=== PATIENT | female | born 1990 | race Caucasian/White ===

== ENCOUNTER → 2017-10-23 16:38 | Outpatient (CLI) | payer MEDICAID, SELFPAY ==
[2017-10-23 19:17] LABS: Chlamydia Trachomatis by PCR Negative (Negative); Neisserai gonorrhoeae by PCR Negative (Negative); Probe Check PASS; Sample Adequacy Control PASS; Specimen Processing Control PASS
== END ==
PROVIDERS: Visit Provider Obstetrics & Gynecology
DX: Z11.3 Encounter for screening for infections with a predominantly sexual mode of transmission (principal)
CPT/HCPCS: 87491; 87591

== ENCOUNTER 2018-05-02 21:11 | Emergency (ER) | payer MEDICAID, SELFPAY ==
[2018-05-02 21:12] VITALS: BP 123/68; PULSE 75; RESP 16; TEMP 37.1; O2SAT 98; BMI 28.3
[2018-05-02] MEDS: Naproxen 500 MG Tablet PO (21:38)
[2018-05-02] MEDS: Diphth,Pertuss(Acell),Tet Vac 0.5 ML Vial IM (21:40)
--- NOTE | 2018-05-02 21:40 | RAD_ITS ---
STUDY: X-RAY - LUMBAR SPINE REASON FOR EXAM: Female, 28 years old. Fall and pain TECHNIQUE: 3 view(s) of the lumbar spine were obtained. # of Images: 3 COMPARISON: None FINDINGS: Normal lumbar lordosis. There is no substantial scoliosis. There is a normal alignment of the vertebrae. Normal vertebral bodies and endplates. Normal disc space heights. An IUD is present. RAD/Lumbar Spine 2 or 3 Views IMPRESSION: Normal x-ray examination of the lumbar spine. Comment: If there is further clinical concern for a radiographically occult spinal fracture, consider CT correlation if possible. Electronically Signed: Byron Grewal MD at 22:15 EDT Tel , Service support ,
--- NOTE | 2018-05-02 22:19 | ED.DCSUM_ITS ---
- ER Visit Summary Date of Service: 05/02/18 Chief Complaint: Fall History of Present Illness: The patient is a 28 F with no primary care physician. She reports that approximately noon today she slipped on wet floor and fell about 15 with steps. States that initially she had lower back pain that was 8 out of 10 severity. Is now 3 out of 10 severity. States that she did not have any other pains initially. Now she has pain in her upper back, headache, and pain in her buttocks. She denies any loss of consciousness. She has not taken anything for pain. She is unsure when her last tetanus shot was. Physical Examination: Vitals: Stable. Afebrile. Neck: No vertebral tenderness. Full ROM without difficulty. Cleared by NEXUS criteria. Back: Mild diffuse tenderness palpation over the LS spine. General: A&O x 3. NAD. Cardiovascular exam: Regular rate and rhythm, no murmur, rub or gallop. Respiratory exam: Chest nontender. No crepitus. Clear to auscultation bilaterally. No wheezes or stridor. Abdominal exam: Soft, nontender, nondistended, normal bowel sounds. No pain in RUQ or LUQ specifically. No peritoneal signs. Extremity: 1 cm superficial laceration over the left olecranon process. No pain with range of motion. Test Results: LS spine x-rays were negative. Emergency Department Course and Treatment: Patient was treated with naproxen and is resting comfortably. Patient had her tetanus updated. Treatment Plan: Patient be discharged naproxen. Instructed to follow-up the [facility] in 3-5 days if not improving. Return to the emergency department for any worsening symptoms. Disposition: To home in improved and stable condition. Impression: 1. Fall. 2. Laceration left elbow, 1 cm, not repaired. 3. Lumbar strain. This note was generated with [employer] dictation software. It may contain incorrect words, spelling, and punctuation that were not noted in review of the chart prior to signing ED Disposition - Plan for ED Patient: Disposition: Home or Assisted Living Chief Complaint: Fall Instructions: ED Neck Back Pain General Prescriptions: Naproxen [Naprosyn] 500 mg PO BID #14 tablet Referrals: [facility] [NON-STAFF] - 3-5 Days if not improving
[2018-05-02 22:24] VITALS: BP 118/70; PULSE 70; RESP 14; O2SAT 98
== END 2018-05-02 22:25 | disposition home or self-care (01) ==
LOC: ED 21:53
PROVIDERS: Emergency Provider Emergency Medicine
DX: S51.012A Laceration without foreign body of left elbow, initial encounter (principal); S39.012A Strain of muscle, fascia and tendon of lower back, initial encounter; W10.9XXA Fall (on) (from) unspecified stairs and steps, initial encounter; Y93.9 Activity, unspecified; Y92.9 Unspecified place or not applicable; Y99.9 Unspecified external cause status; R05 Cough; Z23 Encounter for immunization
CPT/HCPCS: 72100; 90715; 99283

== ENCOUNTER 2019-03-01 16:38 | Emergency (ER) | payer MEDICAID, SELFPAY ==
[2019-03-01 16:39] VITALS: BP 116/70; PULSE 75; RESP 17; TEMP 36.8; O2SAT 98; BMI 25.4
--- NOTE | 2019-03-01 16:55 | RAD_ITS ---
STUDY: X-RAY - LEFT ANKLE REASON FOR EXAM: Female, 28 years old. Injury and pain TECHNIQUE: 3 view(s) of the ankle. COMPARISON: None. FINDINGS: Normal visualized distal tibia and fibula. Normal medial and lateral malleoli. Normal tibiotalar articulation and ankle mortise. Normal visualized talus and calcaneus. The visualized subtalar, talonavicular, calcaneocuboid and tarsal articulations are normal. There is no demonstrated fracture. The soft tissue structures are unremarkable. RAD/Ankle min 3 Views IMPRESSION: Normal x-ray examination of the ankle. Electronically Signed: Jovanny Trujillo MD at 17:12 EDT , Service support ,
--- NOTE | 2019-03-01 17:58 | ED.VISSUMM ---
- ER Visit Summary Date of Service: 03/01/19 Chief Complaint: Left ankle pain History of Present Illness: The patient is a [address] Liz. She reports that this afternoon she had a forced inversion injury of her left ankle wall putting a car seat in the car. She complains of achy pains 5 out of 10 at worst and 4-10 currently. Is worsened by walking. Is relieved by rest. She has not taken anything for pain. She denies any other injuries. No paresthesias distally. Physical Examination: Vitals: Stable. Afebrile. General: Well-nourished and well-developed. Head: Normocephalic atraumatic. Neck: Supple, no lymphadenopathy. No JVD. Nontender. Cardiovascular: Regular rate and rhythm. No murmurs. Respiratory: No respiratory distress. Clear to auscultation bilaterally. Abdominal: Soft, nontender, nondistended, normal bowel sounds. No guarding, rebound, or peritoneal signs. Back: Nontender. Extremities: Mild tenderness palpation soft tissue swelling over the lateral malleolus. No pain over the malleolus. No pain over the base the fifth metatarsal or proximal fibula. She is neurovascular intact distally. Skin: Normal color, no rash. Neurologic: Alert and oriented ?3. Cranial nerves II through XII are intact. Normal strength and sensation. Psych: Normal affect. Test Results: X-rays negative. Emergency Department Course and Treatment: Patient refused pain medications or crutches. She is resting comfortably. Treatment Plan: Patient will be discharged instructions of her primary care physician 1 week if not improving. Return to the emergency department for any worsening symptoms. Disposition: To home in improved and stable condition. Impression: 1. Left ankle sprain. This note was generated with [employer] software. It may contain incorrect words, spelling, and punctuation that were not noted in review of the chart prior to signing ED Disposition - Plan for ED Patient: Disposition: Home or Assisted Living Instructions: Sprain, Ankle, with X-Ray Referrals: Kwame Liz MD [Primary Care Provider] - 1 Week if not improving
== END 2019-03-01 18:09 | disposition home or self-care (01) ==
LOC: ED 18:06
PROVIDERS: Emergency Provider Emergency Medicine; Family Provider Family Medicine; PCP Family Medicine
DX: S93.402A Sprain of unspecified ligament of left ankle, initial encounter (principal); X50.1XXA Overexertion from prolonged static or awkward postures, initial encounter; Y93.9 Activity, unspecified; Y92.9 Unspecified place or not applicable; Y99.9 Unspecified external cause status
CPT/HCPCS: 73610; 99282

== ENCOUNTER → 2019-07-01 16:50 | Outpatient (CLI) | payer MEDICAID, SELFPAY | PROVIDERS: Visit Provider Advanced Practice Midwife | DX: Z12.4 Encounter for screening for malignant neoplasm of cervix (principal); Z11.3 Encounter for screening for infections with a predominantly sexual mode of transmission ==

== ENCOUNTER → 2022-12-22 | Outpatient (CLI) | payer MEDICAID, SELFPAY ==
[2022-12-27 14:09] LABS: HPV APTIMA, High Risk Negative (Negative)
== END | disposition home or self-care (01) ==
LOC: LABSPEC 10:33
PROVIDERS: Visit Provider Student in an Organized Health Care Education/Training Program
DX: Z12.4 Encounter for screening for malignant neoplasm of cervix (principal)
CPT/HCPCS: 87624; 88175; G0145

== ENCOUNTER 2023-01-04 12:27 | Inpatient (IN) | payer MEDICAID, SELFPAY ==
[2023-01-04] VITALS (7 sets, daily range): BP systolic 114–129; BP diastolic 69–84; PULSE 71–96; RESP 16–18; TEMP 36.6–36.9; O2SAT 96–98; BMI 30.2; BMI 30.4
--- NOTE | 2023-01-04 12:55 | EX.ED.DYSGE1 ---
HPI History of Present Illness Chief Complaint: Rash Detail of Chief Complaint: Generalized rash and oral lesions Informant: patient Onset/Context/Timing Onset: Yesterday Timing: Continuous Quality: Nonblanching small red dots Location: Generalized Current Severity: Moderate Maximum Severity: Moderate Worsened by: Unknown to patient Relieved by: Nothing Associated Symptoms Associated Symptoms: Nothing Narrative Narrative: Patient is a 32-year-old woman with history of a LL at the age of 7. She presents because of red rash noted on her torso and extremities and what she believes to be blisters in her mouth. She denies fever or chills. She denies headache. She denies visual, ocular auditory symptoms. Denies trouble with speech or swallowing. She denies cardiac respiratory symptoms. She denies bleeding of her gums. She denies bleeding from her nose. She denies blood in her urine. She denies black or maroon-colored stool. She is menstruating and says she is presently bleeding. She is now bleeding more than normal. Daughter stated I need to look near the right iliac wing because there is a large area that does not look normal. Prior similar symptoms: No Recent Illness/Hospitalization: No PFSH PFSH Home Medications NK 01/04/23 [History Last Taken Unknown] Allergy/AdvReac Type Severity Reaction Status Date / Time sulfamethoxazole Allergy Hives Verified 03/01/19 16:39 [From Bactrim] trimethoprim [From Bactrim] Allergy Hives Verified 03/01/19 16:39 amoxicillin AdvReac Rash Verified 03/01/19 16:39 Social History Smoking Status: Never smoker ROS ROS ED Constitutional Constitutional ED: Denies chills, fever(s), subjective, sweats or weight loss Eyes Eyes: Denies blurry vision, change in vision or diplopia ENT ENT ED: Denies ear pain, rhinorrhea or sore throat Cardiovascular Cardiovascular: Denies chest pain, orthopnea, palpitations, paroxysmal nocturnal dyspnea or racing heartbeat Respiratory/Chest Respiratory/Chest: Denies cough, dyspnea, dyspnea on exertion, orthopnea or paroxysmal nocturnal dyspnea Gastrointestinal Gastrointestinal: Denies melena, nausea or vomiting Genitourinary Genitourinary ED: Reports LMP (females 10-50) Details: Comment: (Presently); Denies dysuria, hematuria or urinary frequency Musculoskeletal Musculoskeletal: Denies arthralgias, back pain, myalgias or neck pain Integumentary Reports rash; Denies abscess or Abrasions Neurologic Neurologic: Denies headache(s), paresthesias or weakness Endocrine Endocrinology: Denies cold intolerance or heat intolerance Hematologic/Lymphatic Hematologic/Lymphatic: Reports systems reviewed and no addt'l complaints, except as documented Allergic/Immunologic Allergic/Immunologic ED: Denies mouth swelling or tongue swelling EXAM Physical Exam Const Vital Signs: 01/04/23 12:28 01/04/23 14:21 Temperature 97.8 F Temperature Source Temporal Pulse Rate 93 96 Respiratory Rate 18 18 Blood Pressure 126/75 H 114/72 Blood Pressure Mean 92 86 Pulse Ox 98 98 Oxygen Delivery Method Room Air Room Air Positive well nourished and well developed General Appearance ED: well developed, NAD and pallor; Negative for cyanotic or diaphoretic HEENT Reports TM's clear and moist mucous membranes HEENT Narrative: Patient has hemorrhagic medellin noted buccal surface of her right and left cheek. There is no bleeding from her gums. There is no vesicular lesions no. Tympanic Membrane ED: Yes TM's clear Eyes PERRL and EOMs intact bilaterally General Eye ED: Negative for pale conjunctiva or scleral icterus Neck no lymphadenopathy, supple and no JVD Chest Wall inspection of chest normal Resp normal respiratory effort and clear to auscultation bilaterally Cardio regular rate, regular rhythm, S1 normal heart sound, S2 normal heart sound and no murmurs GI normal to inspection, nondistended, normoactive bowel sounds Back/Spine no CVA tenderness Extremity Negative for normal to inspection Extremity Narrative: Numerous petechiae Neuro oriented x3, CN's II-XII intact bilaterally and no sensory deficits noted Sensorium / Orientation: alert Motor Exam: strength 5/5 throughout Psych mental status grossly normal Skin No no rashes or lesions noted, no wounds and skin turgor normal General Skin Exam: elasticity normal and pallor; Negative for jaundice MDM MDM MDM Narrative Medical decision making narrative: Pain has petechiae and hemorrhagic lesions noted buccal surface of the mouth. Concern patient has significant thrombocytopenia. This may be related to her past history of acute lymphocytic leukemia. This may also represent ITP etc. Blood work was ordered. Will need to discuss case with cable tower operator. Her primary care physician is affiliated with the [facility]. Will contact Dr. Earnest Wilcox who is on-call for hematology/oncology for the clinic. Dr. Earnest Wilcox was made aware of her laboratory results. He requested an LDH be added. He requested that one of the [place] cable tower operator look at the peripheral smear since he is unable to. If there are no schistocytes we will treat for ITP. If there are schistocytes we will treat for TTP. The nurse practitioner for the hematology group called back. She was made aware of the request by Dr. Earnest Wilcox and will have one of the cable tower operator look at the slide and will contact me. If patient has ITP plan is IV Solu-Medrol and IVIG. Patient was seen by the [facility] oncology/cable tower operator. He recommended 40 mg of Decadron IV push now and 40 mg of Decadron in the morning p.o. He also requested transfusion of 1 unit of platelets. Lab Data Attestation: I reviewed the patient's lab results. Lab results narrative: CBC is remarkable for platelet count less than 2000 coags are normal. Fibrinogen is upper end of normal. Comprehensive metabolic panel reveals slight elevation of bilirubin, 1.1. Labs: Laboratory Results - last 24 hr 01/04/23 01/04/23 01/04/23 13:15 13:15 13:15 WBC 6.1 RBC 4.66 Hgb 14.1 Hct 40.7 MCV 87.3 MCH 30.3 MCHC 34.6 RDW Std Deviation 38.6 RDW Coeff of Castillo 12.1 Plt Count < 2 L* MPV TNP Immature Gran % (Auto) 0.700 Neut % (Auto) 66.0 Lymph % (Auto) 22.7 Weld % (Auto) 8.4 Eos % (Auto) 1.5 Baso % (Auto) 0.7 Absolute Neuts (auto) 4.0 Absolute Lymphs (auto) 1.38 Nucleated RBC % 0 Diff Path Review May foll Platelet Estimate MKD DEC PT 13.7 INR 1.1 APTT 28.9 Fibrinogen 408 Sodium 139 Potassium 3.4 L Chloride 107 Carbon Dioxide 27.0 Anion Gap 5 BUN 9 Creatinine 0.82 Estim Creat Clear Calc 107.75 Est GFR (MDRD) Af Amer 104 Est GFR (MDRD) Non-Af 86 BUN/Creatinine Ratio 10.9 Glucose 95 Calcium 9.2 Total Bilirubin 1.10 H AST 10 L ALT 15 Alkaline Phosphatase 60 Total Protein 7.5 Albumin 3.6 Globulin 3.9 Albumin/Globulin Ratio 0.9 Management Discussion w/another healthcare provider: Hospitalist and Life Skills Teacher Discharge Plan Dx/Rx/DC Orders Clinical Impression: Acute idiopathic thrombocytopenic purpura Disposition Disposition: Acute Care Hospital [facility]
[2023-01-04 13:21] LABS: Absolute Lymphocyte Count 1.38 X10^3/uL (0.83-4.51); Basophil# 0.04 X10^3/uL; Basophil% 0.7 % (0-1); Eosinophil# 0.09 X10^3/uL; Eosinophils% 1.5 % (0-5); Hematocrit 40.7 % (37-47); Hemoglobin 14.1 g/dL (12.0-15.0); Lymphocyte # 1.38 X10^3/ul (0.83-4.51); Lymphocyte % 22.7 % (19-41); Mean Corp Hgb Conc 34.6 g/dL (32-36); Mean Corpuscular Hgb 30.3 pg (27.0-32.0); Mean Corpuscular Volume 87.3 fL (81-99); Monocyte# 0.51 X10^3/uL; Monocyte% 8.4 % (0-10); NRBC Flagged by Analyzer 0 % (0-5); Neutrophil # 4.01 X10^3/uL (2.7-7.7); POSITIVE COUNT YES; RBC Distribution Width CV 12.1 % (11.6-14.6); RBC Distribution Width SD 38.6 fl (35.1-43.9); Red Blood Count 4.66 M/mm3 (4.2-5.4); White Blood Count 6.1 K/mm3 (4.4-11.0)
[2023-01-04 13:26] LABS: Differential Indicated SCAN CRITERIA MET; Platelet Count < 2 K/mm3 (150-450)
[2023-01-04 13:35] LABS: ALB/GLOB Ratio 0.9 RATIO (0.9-2.4); AST(SGOT) 10 U/L (15-37); Alanine Aminotransfer ALT/SGPT 15 U/L (13-56); Albumin, Serum 3.6 g/dL (3.2-5.0); Alkaline Phosphatase 60 U/L (45-117); Anion Gap 5 (5-15); BUN 9 mg/dL (7-18); BUN/Creat Ratio 10.9 RATIO (10-20); Calcium,Total 9.2 mg/dL (8.5-10.1); Chloride 107 mmol/L (98-107); Creatinine, Serum 0.82 mg/dL (0.55-1.02); EST Glomerular Filtration Rate 86 mL/min (>60); Est Glom Filt Rate - Afr Amer 104 mL/min (>60); Estimated Creatinine Clearance 107.75 ml/min; Globulin 3.9 g/dL (2.2-4.2); Glucose 95 mg/dL (74-106); Potassium 3.4 mmol/L (3.5-5.1); Protein, Total 7.5 g/dL (6.4-8.2); Sodium Level 139 mmol/L (136-145)
[2023-01-04 13:38] LABS: International Normalized Ratio 1.1; Partial Thromboplast Time 28.9 Seconds (24.1-36.2); Prothrombin Time (Protime)PT. 13.7 SECONDS (11.7-14.9)
[2023-01-04 13:39] LABS: Fibrinogen 408 mg/dl (203-444)
[2023-01-04 13:49] LABS: Platelet Estimate MKD DEC (ADEQ)
--- NOTE | 2023-01-04 16:24 | ONC.CONSULT ---
Assessment & Plan Assessment/Plan (1) Thrombocytopenia: Status: Acute Code(s): D69.6 - Thrombocytopenia, unspecified Plan: 32-year-old female with a history of pediatric ALL (diagnosed at age 9) presents with ecchymosis, generalized petechiae, and oral lesions and profound thrombocytopenia as evidenced by platelet count 2000. CBC reviewed no other cytopenias observed, coagulation studies are within normal limits and no remarkable findings on chemistries with the exception of mildly elevated total bilirubin at 1.1. Peripheral blood smear was reviewed, no schistocytes are observed. Thrombocytopenia presumed drug-induced versus ITP. Advise admission given platelet count 2000 and the presence of oral lesions, platelet transfusion, dexamethasone 40 mg daily x4 days to start now with GI prophylaxis (famotidine preferred), and repeat CBC daily. Obtain LDH. Also advise follow-up in the ambulatory setting with [place] [facility]. Case discussed with Dr. Welch was in agreement with aforementioned plan. HPI Consult Data Date of Service:: 01/05/23 PCP / Referring Provider: Dr. Kwame Liz MD Chief Complaint Chief Complaint: thrombocytopenia History of Present Illness History of Present Illness: Ms. Tameka Gonzalez is a very pleasant 32 year female with a PMH significant for pediatric ALL (treated at age 9-[facility]) who presents to [facility] ED with c/o rash and bruising. States she noticed rash yesterday and progressively worsened in terms of area affected and number of spots. Yesterday returned from 10 day trip to [place]. Reports she developed fatigue, mild GI upset, and diarrhea that lasted approx 4 days during travel. Administered an otc antimicrobial, antispasmodic agent, Streptoquin while there. Believes she took 2 doses. Otherwise, no new medications. Abd pain and diarrhea have since resolved. LBM 01/03/23, describes as formed. Denies any mucous-like or bloody stools. Reports she underwent wisdom tooth extraction at age 19 without excessive bleeding and also 2 vaginal deliveries without excessive bleeding. To her knowledge, in adulthood she has never experienced a low platelet count. + vaginal bleeding yesterday, was not anticipating menses but denies menorrhagia. Patient specifically denies fever/chills, sweats, headache, dizziness, vision changes, imbalance, CP, palpitations, cough, SOB, N/V, swelling/pain of her extremities and any overt episodes of bleeding including epistaxis, melena, hematochezia, mucosal bleeding with tooth brushing, etc. Advanced Directives Power of Director Of [employer]col[employer]iate Athletics: No Living Will: No PFSH Medical History (Updated 01/04/23 @ 16:42 by Erin Pelayo BRAID MAKER, BRAID MAKER-C) Thrombocytopenia Medical History unable to obtain Home Medications NK 01/04/23 [History Last Taken Unknown] Allergy/AdvReac Type Severity Reaction Status Date / Time sulfamethoxazole Allergy Hives Verified 03/01/19 16:39 [From Bactrim] trimethoprim [From Bactrim] Allergy Hives Verified 03/01/19 16:39 amoxicillin AdvReac Rash Verified 03/01/19 16:39 Social History Smoking Status: Never smoker ROS ROS Narrative Negative except as documented in the interval HPI Physical Exam Const alert, oriented x3 and no apparent distress HEENT normocephalic and head/scalp atraumatic HEENT Narrative: One scabbed area bottom right lip, one buccal lesion right Mouth: lesions and No thrush Eyes PERRL, EOMs intact bilaterally, conjunctivae normal and no scleral icterus Sclera: sclera normal Neck no lymphadenopathy and supple Resp normal respiratory effort, normal air movement and clear to auscultation bilaterally Effort and Inspection: able to speak in complete sentences Auscultation: Negative for rhonchi or wheezes Cardio regular rate, regular rhythm, S1 normal heart sound, S2 normal heart sound, no murmurs and peripheral pulses 2+ throughout GI normal to inspection, nondistended, normoactive bowel sounds, soft to palpation and non-tender; Negative for hepatosplenomegaly Extremity normal to inspection, no clubbing, cyanosis or edema and no calf tenderness Skin no jaundice Skin Narrative: Scattered petechiae on BUE, BLE, abd and low back. One area of ecchymosis LLE and right side low back General Skin Exam: ecchymosis Neuro oriented x3 and CN's II-XII intact bilaterally Psych mental status grossly normal and affect normal Attitude: calm and engaged Vital Signs Temperature 97.8 F 01/04/23 12:28 Temperature Source Temporal 01/04/23 12:28 Pulse Rate 96 01/04/23 14:21 Respiratory Rate 18 01/04/23 14:21 Blood Pressure 114/72 01/04/23 14:21 Blood Pressure Mean 86 01/04/23 14:21 Pulse Ox 98 01/04/23 14:21 Oxygen Delivery Method Room Air 01/04/23 14:21 Laboratory Results - last 24 hr 01/04/23 13:15: WBC 6.1, RBC 4.66, Hgb 14.1, Hct 40.7, MCV 87.3, MCH 30.3, MCHC 34.6, RDW Std Deviation 38.6, RDW Coeff of Castillo 12.1, Plt Count < 2 L*, MPV TNP, Immature Gran % (Auto) 0.700, Neut % (Auto) 66.0, Lymph % (Auto) 22.7, Campbell % (Auto) 8.4, Eos % (Auto) 1.5, Baso % (Auto) 0.7, Absolute Neuts (auto) 4.0, Absolute Lymphs (auto) 1.38, Nucleated RBC % 0, Diff Path Review November, Platelet Estimate MKD 01/04/23 13:15: PT 13.7, INR 1.1, APTT 28.9, Fibrinogen 408 01/04/23 13:15: Sodium 139, Potassium 3.4 L, Chloride 107, Carbon Dioxide 27.0, Anion Gap 5, BUN 9, Creatinine 0.82, Estim Creat Clear Calc 107.75, Est GFR (MDRD) Af Amer 104, Est GFR (MDRD) Non-Af 86, BUN/Creatinine Ratio 10.9, Glucose 95, Calcium 9.2, Total Bilirubin 1.10 H, AST 10 L, ALT 15, Alkaline Phosphatase 60, Total Protein 7.5, Albumin 3.6, Globulin 3.9, Albumin/Globulin Ratio 0.9 Charges/Coding Multi Select Codes Addendum Addendum: This consultation was requested urgently by [facility] emergency room initially to [facility] hematology oncology but because they were not able to see her urgently, our team was then asked to do the consult. I personally participated in history giving and examined the patient together with the nurse practitioner in the emergency room and discussed all clinical diagnosis and plan of care with the emergency room doctor. In summary patient is a 32-year-old female who presents with acute isolated thrombocytopenia days after returning from a trip to [place] during which she suffered an acute diarrheal illness for which she received an [id number] combination of antimicrobials and antimotility agents. She returned to the [place], diarrhea had resolved but developed acutely generalized Purpura. Physical exam notable for widespread purpura involving the skin and a few purpuric spots involving the oral mucosa. The rest of the physical exam was normal with particular attention to [employer]. I personally reviewed the patient's peripheral blood smear with the nurse practitioner and the notable abnormality was very small absence of platelets. The red blood series was normal with no schistocytes and myeloid series showed mature neutrophilic left shift. Her chemistries notable for normal creatinine, LDH and liver enzymes. Her PT and PTT were normal. The clinical diagnosis is most consistent with immune thrombocytopenia, may be infection or drug induced. The plan is to treat with high-dose Decadron 40 mg daily for 4 days. The first dose was given intravenously in the emergency room shortly after our consultation. Platelet transfusion was ordered in the emergency room. Follow CBC daily. If there is lack of response, would consider IV hydration. Impression and plan were discussed also with the patient Renetta Welch MD Office Manager, [facility] Divisions of Medical Oncology & Hematology Department of Internal Medicine [place] [phone] This note was generated using a voice recognition system software. Although it was reviewed by the author prior to finalization, it may still contain incorrect words, spelling, and punctuation that were not noted when reviewing prior to saving. If a clinically significant typo or inaccurately typed phrase is noted, please notify the author.
[2023-01-04] MEDS: dexAMETHasone 20 MG/5 ML Vial 40 MG IV (16:27)
[2023-01-04 18:36] LABS: LDH 193 U/L (84-246)
[2023-01-04] MEDS: Acetaminophen 325 MG Tablet 650 MG PO (19:44)
--- NOTE | 2023-01-04 20:22 | PCM.HP.STD ---
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 Patient recently returned from trip to [place] to see her . Denies any other symptoms. Denies any fever or chills or malaise. Denies any muscle aches or arthralgias. No jaundice. No abdominal pain nausea vomiting. [facility] Medical History (Updated 01/04/23 @ 16:42 by Erin Pelayo WET PROCESS MILLER HEAD, WET PROCESS MILLER HEAD-C) Thrombocytopenia Medical History unable to obtain unable to obtain Home Medications NK 01/04/23 [History Last Taken Unknown] Allergy/AdvReac Type Severity Reaction Status Date / Time sulfamethoxazole Allergy Hives Verified 03/01/19 16:39 [From Bactrim] trimethoprim [From Bactrim] Allergy Hives Verified 03/01/19 16:39 amoxicillin AdvReac Rash Verified 03/01/19 16:39 Social History Smoking Status: Never smoker ROS ROS Narrative Denies any chest pain or shortness of breath. All other systems reviewed and essentially negative as above in the body of the history. Vital Signs Vital Signs Vital Signs: 01/04/23 12:28 01/04/23 14:21 01/04/23 16:40 Temperature 36.6 C 36.6 C Temperature Source Temporal Temporal Pulse Rate 93 96 83 Respiratory Rate 18 18 16 Respiratory Effort Respiratory Depth Respiratory Pattern Blood Pressure 126/75 H 114/72 118/83 H Blood Pressure Mean 92 86 94 Blood Pressure Source Blood Pressure Position Blood Pressure Location Pulse Ox 98 98 96 Oxygen Delivery Method Room Air Room Air Room Air 01/04/23 16:51 01/04/23 18:52 01/04/23 18:42 Temperature 36.6 C 36.7 C Temperature Source Temporal Oral Pulse Rate 83 88 Respiratory Rate 16 18 Respiratory Effort Normal Non-Labored Respiratory Depth Normal Respiratory Pattern Normal Blood Pressure 118/83 H 129/84 H Blood Pressure Mean 94 99 Blood Pressure Source Monitor Blood Pressure Position Semi-Fowlers Blood Pressure Location Right Arm Pulse Ox 96 98 Oxygen Delivery Method Room Air Room Air Room Air Weight Weight: 68.3 kg Body Mass Index (BMI) 30.4 Physical Exam Narrative General exam. Young lady, not ill looking, not in any obvious distress, quite pleasant HEENT. Oral mucosa moist no pallor or jaundice Neck. Neck is supple Lungs. Clear to auscultation Heart. Has a second sounds heard no murmurs Abdomen soft and full nontender. Extremities. Petechial rash in both lower extremities. 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 Conscious alert and oriented x3. Cranial stroke is intact. Results Lab / Micro Data Attestation: I reviewed the patient's lab results. Result Diagrams: 01/04/23 13:15 01/04/23 13:15 Labs: Laboratory Results - last 24 hr 01/04/23 13:15: WBC 6.1, RBC 4.66, Hgb 14.1, Hct 40.7, MCV 87.3, MCH 30.3, MCHC 34.6, RDW Std Deviation 38.6, RDW Coeff of Castillo 12.1, Plt Count < 2 L*, MPV TNP, Immature Gran % (Auto) 0.700, Neut % (Auto) 66.0, Lymph % (Auto) 22.7, [place] % (Auto) 8.4, Eos % (Auto) 1.5, Baso % (Auto) 0.7, Absolute Neuts (auto) 4.0, Absolute Lymphs (auto) 1.38, Nucleated RBC % 0, Diff Path Review November, Platelet Estimate MKD 01/04/23 13:15: PT 13.7, INR 1.1, APTT 28.9, Fibrinogen 408 01/04/23 13:15: Sodium 139, Potassium 3.4 L, Chloride 107, Carbon Dioxide 27.0, Anion Gap 5, BUN 9, Creatinine 0.82, Estim Creat Clear Calc 107.75, Est GFR (MDRD) Af Amer 104, Est GFR (MDRD) Non-Af 86, BUN/Creatinine Ratio 10.9, Glucose 95, Calcium 9.2, Total Bilirubin 1.10 H, AST 10 L, ALT 15, Alkaline Phosphatase 60, Total Protein 7.5, Albumin 3.6, Globulin 3.9, Albumin/Globulin Ratio 0.9 01/04/23 13:15: Lactate Dehydrogenase 193 01/04/23 16:09: Blood Type A NEGATIVE Assessment & Plan Assessment/Plan (1) Thrombocytopenia: PLAN: Plan Assessment and plan 1. Profound thrombocytopenia with petechial rash. Coagulation panel is normal and peripheral blood Smear reviewed by hematology negative for schistocytes and thus raising high likelihood of this being idiopathic thrombocytopenic purpura. Wonder if potentially related to an acute myeloproliferative disorder. Received IV dexamethasone 40 mg in the emergency department per recommendations of hematology was consulted patient continued 40 mg p.o. tomorrow morning. We will be transfusing with 1 unit of platelets. Recheck CBC in the morning. Check for parvovirus. Supportive care. Monitor closely. Avoid blood thinners antiplatelets. Charges/Coding Visit Charges Inpatient E&M: 82478 Init Hosp L3
[2023-01-04] MEDS: Ascorbic Acid 500 MG Tablet PO (21:32)
[2023-01-04] MEDS: 0.9% Saline Lock 10 ML Syringe IV (21:32)
[2023-01-05] VITALS (7 sets, daily range): BP systolic 106–120; BP diastolic 58–73; PULSE 55–94; RESP 16–18; TEMP 36.7–37.4; O2SAT 96–98
[2023-01-05] MEDS: Ascorbic Acid 500 MG Tablet PO ×3 (06:02→21:39)
[2023-01-05 06:25] LABS: ALB/GLOB Ratio 0.9 RATIO (0.9-2.4); AST(SGOT) 11 U/L (15-37); Alanine Aminotransfer ALT/SGPT 17 U/L (13-56); Albumin, Serum 3.7 g/dL (3.2-5.0); Alkaline Phosphatase 60 U/L (45-117); Anion Gap 6 (5-15); BUN 9 mg/dL (7-18); Calcium,Total 9.5 mg/dL (8.5-10.1); Chloride 107 mmol/L (98-107); Creatinine, Serum 0.69 mg/dL (0.55-1.02); EST Glomerular Filtration Rate 106 mL/min (>60); Est Glom Filt Rate - Afr Amer 128 mL/min (>60); Estimated Creatinine Clearance 128.54 ml/min; Globulin 4.1 g/dL (2.2-4.2); Glucose 136 mg/dL (74-106); Potassium 4.4 mmol/L (3.5-5.1); Protein, Total 7.8 g/dL (6.4-8.2); Sodium Level 138 mmol/L (136-145)
[2023-01-05 06:37] LABS: Absolute Lymphocyte Count 0.78 X10^3/uL (0.83-4.51); Absolute Neutrophil Count 5.9 X10^3/uL (2.0-7.7); Basophil# 0.03 X10^3/uL; Basophil% 0.4 % (0-1); Eosinophil# 0.22 X10^3/uL; Eosinophils% 3.1 % (0-5); Hematocrit 40.1 % (37-47); Hemoglobin 13.7 g/dL (12.0-15.0); Lymphocyte # 0.78 X10^3/ul (0.83-4.51); Mean Corp Hgb Conc 34.2 g/dL (32-36); Mean Corpuscular Hgb 30.2 pg (27.0-32.0); Mean Corpuscular Volume 88.3 fL (81-99); Monocyte# 0.09 X10^3/uL; Monocyte% 1.3 % (0-10); NRBC Flagged by Analyzer 0 % (0-5); Neutrophil # 5.94 X10^3/uL (2.7-7.7); Neutrophil % 83.6 % (47-70); POSITIVE COUNT YES; POSITIVE MORPHOLOGY YES; RBC Distribution Width CV 11.8 % (11.6-14.6); Red Blood Count 4.54 M/mm3 (4.2-5.4); White Blood Count 7.1 K/mm3 (4.4-11.0)
[2023-01-05 06:47] LABS: Differential Indicated SCAN CRITERIA MET; Platelet Count 3 K/mm3 (150-450)
[2023-01-05 07:00] LABS: Differential Comment SCANNED; Platelet Estimate MKD DEC (ADEQ)
--- NOTE | 2023-01-05 09:29 | CT_ITS ---
STUDY: CT BRAIN WITHOUT CONTRAST REASON FOR EXAM: Female, 32 years old. Headache/nausea with severe thrombocytopenia RADIATION DOSAGE (If Supplied By Facility): CTDIvol = ( 44.99 ) mGy, DLP = ( 745.49 ) mGycm TECHNIQUE: Transaxial CT imaging of the brain was performed without administration of intravenous contrast material. Individualized dose optimization techniques were used for this CT. COMPARISON: None. FINDINGS: No visualized hydrocephalus or midline shift. No parenchymal edema is present. Normal soft tissue structures. Normal calvarium. Normal size ventricles and extra-axial spaces for the patient''s age. Normal white matter tracts of the cerebral hemispheres. Normal basal ganglia and thalami. Normal brainstem. Normal cerebellum. There is no intracranial hemorrhage. There are no findings of an acute ischemic infarction. Normal visualized paranasal sinuses. CT/Brain/Head without Contrast IMPRESSION: Normal unenhanced CT scan of the brain. Electronically Signed: Jeremias Dsouza MD at 11:59 EDT ,
[2023-01-05] MEDS: Pantoprazole Sodium 40 MG Tablet PO (09:54)
[2023-01-05] MEDS: dexAMETHasone 4 MG Tablet 40 MG PO (09:55)
--- NOTE | 2023-01-05 10:29 | PCM.PN.HOSP ---
Subjective Subjective Doing well, has little bit of a headache and some nausea today Objective Data Objective Data Vital Signs: Vital Signs Temp Pulse Resp BP Pulse Ox O2 Del Method 98.1 F 55 L 16 111/73 96 Room Air 01/05/23 04:00 01/05/23 04:00 01/05/23 04:00 01/05/23 04:00 01/05/23 04:00 01/05/23 04:00 Oxygen Delivery Method Room Air Weight: 150 lb 9.211 oz Body Mass Index (BMI) 30.4 Intake & Output: Intake and Output for Last 24 Hours 01/04/23 01/05/23 01/06/23 03:59 03:59 03:59 Intake Total 200 / 200 Balance 200 / 200 Lab / Micro Data Result Diagrams: 01/05/23 05:50 01/05/23 05:50 Labs: Laboratory Results - last 24 hr 01/04/23 13:15: WBC 6.1, RBC 4.66, Hgb 14.1, Hct 40.7, MCV 87.3, MCH 30.3, MCHC 34.6, RDW Std Deviation 38.6, RDW Coeff of Castillo 12.1, Plt Count < 2 L*, MPV TNP, Immature Gran % (Auto) 0.700, Neut % (Auto) 66.0, Lymph % (Auto) 22.7, [place] % (Auto) 8.4, Eos % (Auto) 1.5, Baso % (Auto) 0.7, Absolute Neuts (auto) 4.0, Absolute Lymphs (auto) 1.38, Nucleated RBC % 0, Diff Path Review November, Platelet Estimate MKD 01/04/23 13:15: PT 13.7, INR 1.1, APTT 28.9, Fibrinogen 408 01/04/23 13:15: Sodium 139, Potassium 3.4 L, Chloride 107, Carbon Dioxide 27.0, Anion Gap 5, BUN 9, Creatinine 0.82, Estim Creat Clear Calc 107.75, Est GFR (MDRD) Af Amer 104, Est GFR (MDRD) Non-Af 86, BUN/Creatinine Ratio 10.9, Glucose 95, Calcium 9.2, Total Bilirubin 1.10 H, AST 10 L, ALT 15, Alkaline Phosphatase 60, Total Protein 7.5, Albumin 3.6, Globulin 3.9, Albumin/Globulin Ratio 0.9 01/04/23 13:15: Lactate Dehydrogenase 193 01/04/23 16:09: Blood Type A NEGATIVE 01/05/23 05:50: Sodium 138, Potassium 4.4, Chloride 107, Carbon Dioxide 25.0, Anion Gap 6, BUN 9, Creatinine 0.69, Estim Creat Clear Calc 128.54, Est GFR (MDRD) Af Amer 128, Est GFR (MDRD) Non-Af 106, BUN/Creatinine Ratio 13.0, Glucose 136 H, Calcium 9.5, Total Bilirubin 0.80, AST 11 L, ALT 17, Alkaline Phosphatase 60, Total Protein 7.8, Albumin 3.7, Globulin 4.1, Albumin/Globulin Ratio 0.9 01/05/23 05:50: WBC 7.1, RBC 4.54, Hgb 13.7, Hct 40.1, MCV 88.3, MCH 30.2, MCHC 34.2, RDW Std Deviation 38.0, RDW Coeff of Castillo 11.8, Plt Count 3 L*, MPV TNP, Immature Gran % (Auto) 0.600, Neut % (Auto) 83.6 H, Lymph % (Auto) 11.0 L, [place] % (Auto) 1.3, Eos % (Auto) 3.1, Baso % (Auto) 0.4, Absolute Neuts (auto) 5.9, Absolute Lymphs (auto) 0.78 L, Nucleated RBC % 0, Differential Comment SCANNED, Diff Path Review November foll, Platelet Estimate MKD DEC Physical Exam Narrative General: Alert, Oriented x3, Cooperative, No apparent distress HEENT: Atraumatic, PERRLA, EOMI, Normocephalic Oral: Moist Mucosa Neck: Supple, No JVD Lungs: Clear to auscultation, Normal air movement, No rhonchi, No wheeze, No rales Cardiovascular: Regular rate, Regular Rhythm, Normal S1, Normal S2, No murmurs Abdomen: Soft, Non Tender, Non-Distended, No Hepato-splenomegaly Extremities: No edema, Capillary Refill Less than 3 Seconds Skin: Petechial rash on her legs Musculoskeletal: No Tenderness to Palpation of Joints or Extremities Neurological: Cranial nerves II-XII grossly intact, Motor Exam 5/5 strength throughout, Sensory exam intact to light touch and pain Psych/Mental Status: Normal Affect, Appropriate Assessment & Plan Assessment/Plan (1) Thrombocytopenia: PLAN: Plan 1. Acute thrombocytopenia ? Concern for ITP, hematology is consulted ? We will continue with Decadron ? Will transfuse more platelets today and monitor ? Given her headache and nausea and given how low her platelets are we will obtain a CT of the brain to rule out hemorrhage ? Will continue with Pepcid DVT: Ambulation Charges/Coding Visit Charges Inpatient E&M: 09248 Subs Hosp L2
--- NOTE | 2023-01-05 11:45 | CASEMGMT ---
RN CM Face to Face with patient for initial transition planning/care coordination assessment. RN CM introduced self and role at [facility]. Patient lying in bed, alert and oriented, mother at bedside. Patient willing to participate in assessment and is able to answer all questions appropriately. Care providers, pharmacy, and demographics verified. Patient wishes to discharge home, denies need for home health at this time. Patient states she has no further needs or concerns at this time. CM to follow for discharge planning needs that may arise. PCP: Agusto Specialists: none Preferred Pharmacy: [facility] Insurance: [place] Prescription Benefit: yes Living Will/HPOA: none LNOK: mother, sisters, brothers Living Arrangements: Gladis lives with 2 children 7 and 8yo that are with patient's sisters. Patient lives in a 2 story home with bed and bath on first floor. Patient states she is independent and able ambulate stairs. Transportation: self, mother, sisters DME/HHC: Patient denies DME in the home. No previous HHC or SNF Disposition Plan: Patient to discharge home with family support and follow-up plans in place. Majo MARAVILLAN, RN, CM
[2023-01-05 15:29] LABS: Pathologist Review Reviewed
[2023-01-05 15:33] LABS: Pathologist Review Reviewed
[2023-01-06 04:45] VITALS: BP 110/88; PULSE 96; RESP 16; TEMP 36.7; O2SAT 97
[2023-01-06] MEDS: Ascorbic Acid 500 MG Tablet PO ×3 (05:35→21:16)
[2023-01-06 07:21] LABS: Absolute Neutrophil Count 9.7 X10^3/uL (2.0-7.7); Basophil# 0.02 X10^3/uL; Basophil% 0.2 % (0-1); Hematocrit 38.2 % (37-47); Lymphocyte % 9.5 % (19-41); Mean Corpuscular Hgb 30.4 pg (27.0-32.0); Mean Corpuscular Volume 89.5 fL (81-99); Mean Platelet Vol. 12.5 fl (6.2-12.0); Monocyte# 0.61 X10^3/uL; Monocyte% 5.3 % (0-10); NRBC Flagged by Analyzer 0 % (0-5); Neutrophil # 9.72 X10^3/uL (2.7-7.7); POSITIVE COUNT YES; RBC Distribution Width SD 38.8 fl (35.1-43.9); Red Blood Count 4.27 M/mm3 (4.2-5.4); White Blood Count 11.6 K/mm3 (4.4-11.0)
[2023-01-06 08:02] LABS: Differential Indicated SCAN CRITERIA MET; Platelet Count 32 K/mm3 (150-450)
[2023-01-06 08:44] VITALS: BP 121/74; PULSE 68; RESP 16; TEMP 36.8; O2SAT 97
[2023-01-06] MEDS: dexAMETHasone 4 MG Tablet 40 MG PO (08:45)
[2023-01-06] MEDS: Famotidine 20 MG Tablet 40 MG PO (08:48)
[2023-01-06 08:54] LABS: Differential Comment SCANNED; Platelet Estimate MKD DEC (ADEQ)
--- NOTE | 2023-01-06 09:06 | PCM.PN.HOSP ---
Subjective Subjective Well, no issues overnight. Platelet count today is 32 Objective Data Objective Data Vital Signs: Vital Signs Temp Pulse Resp BP Pulse Ox O2 Del Method 98.2 F 68 16 121/74 H 97 Room Air 01/06/23 08:44 01/06/23 08:44 01/06/23 08:44 01/06/23 08:44 01/06/23 08:44 01/06/23 08:44 Oxygen Delivery Method Room Air Weight: 150 lb 9.211 oz Body Mass Index (BMI) 30.4 Intake & Output: Intake and Output for Last 24 Hours 01/05/23 01/06/23 01/07/23 03:59 03:59 03:59 Intake Total 200 / 200 1400 / 1400 Balance 200 / 200 1400 / 1400 Lab / Micro Data Result Diagrams: 01/06/23 06:52 01/05/23 05:50 Labs: Laboratory Results - last 24 hr 01/04/23 13:15: Diff Path Review Reviewed 01/05/23 05:50: Diff Path Review Reviewed 01/06/23 06:52: WBC 11.6 H, RBC 4.27, Hgb 13.0, Hct 38.2, MCV 89.5, MCH 30.4, MCHC 34.0, RDW Std Deviation 38.8, RDW Coeff of Castillo 12.0, Plt Count 32 L*, MPV 12.5 H, Immature Gran % (Auto) 1.000 H, Neut % (Auto) 84.0 H, Lymph % (Auto) 9.5 L, [place] % (Auto) 5.3, Eos % (Auto) 0.0, Baso % (Auto) 0.2, Absolute Neuts (auto) 9.7 H, Absolute Lymphs (auto) 1.10, Nucleated RBC % 0, Differential Comment SCANNED, Diff Path Review May , Platelet Estimate MKD DEC Radiography Diagnostic Testing: Radiology Impression Brain CT 01/05/23 09:29 IMPRESSION: Normal unenhanced CT scan of the brain. Electronically Signed: Jeremias Dsouza MD at 11:59 EDT , Physical Exam Narrative General: Alert, Oriented x3, Cooperative, No apparent distress HEENT: Atraumatic, PERRLA, EOMI, Normocephalic Oral: Moist Mucosa Neck: Supple, No JVD Lungs: Clear to auscultation, Normal air movement, No rhonchi, No wheeze, No rales Cardiovascular: Regular rate, Regular Rhythm, Normal S1, Normal S2, No murmurs Abdomen: Soft, Non Tender, Non-Distended, No Hepato-splenomegaly Extremities: No edema, Capillary Refill Less than 3 Seconds Skin: Petechial rash on her legs improved Musculoskeletal: No Tenderness to Palpation of Joints or Extremities Neurological: Cranial nerves II-XII grossly intact, Motor Exam 5/5 strength throughout, Sensory exam intact to light touch and pain Psych/Mental Status: Normal Affect, Appropriate Assessment & Plan Assessment/Plan (1) Thrombocytopenia: PLAN: Plan 1. Acute thrombocytopenia ? Concern for ITP, hematology is consulted ? We will continue with Decadron ? Platelet count today is 32,000, will hold off on any further transfusions and monitor if continues to rise can plan for outpatient follow-up ? CT of the brain is unremarkable ? Will continue with Pepcid DVT: Ambulation Charges/Coding Visit Charges Inpatient E&M: 61879 Subs Hosp L2
[2023-01-06 15:56] VITALS: BP 123/78; PULSE 84; RESP 17; TEMP 36.7; O2SAT 100
[2023-01-06 20:26] VITALS: BP 126/79; PULSE 64; RESP 16; TEMP 36.7; O2SAT 97
[2023-01-07] MEDS: Ascorbic Acid 500 MG Tablet PO (04:45)
[2023-01-07] MEDS: 0.9% Saline Lock 10 ML Syringe IV (04:46)
[2023-01-07 04:51] VITALS: BP 117/70; PULSE 68; RESP 16; TEMP 36.8; O2SAT 100
[2023-01-07 06:18] LABS: Absolute Lymphocyte Count 1.13 X10^3/uL (0.83-4.51); Absolute Neutrophil Count 8.6 X10^3/uL (2.0-7.7); Basophil# 0.04 X10^3/uL; Basophil% 0.4 % (0-1); Hematocrit 37.8 % (37-47); Hemoglobin 12.6 g/dL (12.0-15.0); Lymphocyte # 1.13 X10^3/ul (0.83-4.51); Lymphocyte % 10.8 % (19-41); Mean Corp Hgb Conc 33.3 g/dL (32-36); Mean Corpuscular Hgb 30.4 pg (27.0-32.0); Mean Corpuscular Volume 91.1 fL (81-99); Mean Platelet Vol. 11.9 fl (6.2-12.0); Monocyte# 0.53 X10^3/uL; Monocyte% 5.1 % (0-10); NRBC Flagged by Analyzer 0 % (0-5); Neutrophil # 8.59 X10^3/uL (2.7-7.7); Neutrophil % 81.8 % (47-70); POSITIVE COUNT YES; Platelet Count 63 K/mm3 (150-450); RBC Distribution Width CV 12.2 % (11.6-14.6); RBC Distribution Width SD 40.2 fl (35.1-43.9); Red Blood Count 4.15 M/mm3 (4.2-5.4); White Blood Count 10.5 K/mm3 (4.4-11.0)
--- NOTE | 2023-01-07 09:57 | DCINST_ITS ---
Discharge Instructions Diet Discharge Diet: No restrictions Activity Discharge Activity: Return to Normal Activity Dressing / Incision Call your doctor if you observe: Fever of 101 or Higher, Shortness of breath, Dizziness, Fainting spells, Swelling in the ankles, Chest pain and Increased palpitations (irregular heartbeat) Follow Up Care Test Results: Test results from this visit will be discussed in further detail at your follow- up appointment, if applicable. Discharge Plan Admission Admit Date/Time: 01/04/23 17:58 Attending Provider: Edwin Bermudez Primary Care Provider: Kwame Liz Consulting Providers: Jacques Braswell ; Nathan Catalan ; Renetta Welch ; Andrew Mejia ; Vladimir Kim ; Darian Trammell ; José Miguel Harris ; Erin Pelayo NP ; Kat Mccollum Discharge Orders/Prescriptions Prescriptions: No Action NK Referrals / Follow Up: Kwame Liz MD [Primary Care Provider] - Within 1 Week Renetta Welch MD [Med Staff - Active Staff] - Within 1 Week Disposition Disposition (needs filled in before D/C Order can be placed): Home, Self Care
--- NOTE | 2023-01-07 10:11 | PCM.DC.SUM ---
Providers Date of Admission: 01/04/23 Primary Care Physician: Dr. Kwame Liz MD Consultations 01/04/23 15:56 Consult: Oncology/Hematology Routine Consulting Provider: [facility] ([facility]) Reason for Consult: Thrombocytopenia EMERGENT Consult: Yes Notified: Yes Date Notified: 01/04/23 Time Notified: 14:00 Method of Notification: Verbal 01/04/23 17:57 Consult: Oncology/Hematology Routine Consulting Provider: Renetta Welch Reason for Consult: profound thrombocytopenia EMERGENT Consult: No MD Notified: Yes Date Notified: 01/04/23 Time Notified: 18:14 Method of Notification: Text Comments:: noted already in computer from keshia Yap NP as well. 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 Patient recently returned from trip to [place] to see her .? Denies any other symptoms.? Denies any fever or chills or malaise.? Denies any muscle aches or arthralgias.? No jaundice.? No abdominal pain nausea vomiting. Hospital course: 1. Acute thrombocytopenia from ITP?32-year-old female with a history of a LL was recently in [place] to visit her and she developed a lower extremity rash consistent with petechia. On admission her platelets were found to be 2000. She did receive 1 unit and this increased her to 3000 then she received 2 more units including multiple doses of dexamethasone. On the day of discharge her platelet count was up to 63,000 after 2 days of no transfusions. I discussed the case with hematology who felt that for total doses of dexamethasone at 40 mg would be enough and that she could go home and follow-up with them as an outpatient. Of note parvovirus IgG and IgM are still pending though she does not appear to be symptomatic at this time. I discussed with her the plan for discharge today and she expressed understanding of the risk and benefits going home and would like to go home today. Physical Exam Narrative General: Alert, Oriented x3, Cooperative, No apparent distress HEENT: Atraumatic, PERRLA, EOMI, Normocephalic Oral: Moist Mucosa Neck: Supple, No JVD Lungs: Clear to auscultation, Normal air movement, No rhonchi, No wheeze, No rales Cardiovascular: Regular rate, Regular Rhythm, Normal S1, Normal S2, No murmurs Abdomen: Soft, Non Tender, Non-Distended, No Hepato-splenomegaly Extremities: No edema, Capillary Refill Less than 3 Seconds Skin: Petechial rash on her legs improved Musculoskeletal: No Tenderness to Palpation of Joints or Extremities Neurological: Cranial nerves II-XII grossly intact, Motor Exam 5/5 strength throughout, Sensory exam intact to light touch and pain Psych/Mental Status: Normal Affect, Appropriate Weight / BMI Weight Weight: 150 lb 9.211 oz Body Mass Index (BMI) 30.4 ABG / Lab / Microbiology Data Result Diagrams: 01/07/23 05:29 01/05/23 05:50 Laboratory: Laboratory Results - last 24 hr 01/07/23 05:29: WBC 10.5, RBC 4.15 L, Hgb 12.6, Hct 37.8, MCV 91.1, MCH 30.4, MCHC 33.3, RDW Std Deviation 40.2, RDW Coeff of Castillo 12.2, Plt Count 63 L, MPV 11.9, Immature Gran % (Auto) 1.900 H, Neut % (Auto) 81.8 H, Lymph % (Auto) 10.8 L, [place] % (Auto) 5.1, Eos % (Auto) 0.0, Baso % (Auto) 0.4, Absolute Neuts (auto) 8.6 H, Absolute Lymphs (auto) 1.13, Nucleated RBC % 0 D/C Instructions Discharge Diet: No restrictions Call your doctor if you observe: Fever of 101 or Higher, Shortness of breath, Dizziness, Fainting spells, Swelling in the ankles, Chest pain and Increased palpitations (irregular heartbeat) Meaningful Use Info Meaningful Use Diagnoses (Choose all that apply): None applicable Discharge Plan Admission Admit Date/Time: 01/04/23 17:58 Attending Provider: Edwin Bermudez Primary Care Provider: Kwame Liz Consulting Providers: Jacques Braswell ; Nathan Catalan ; Renetta Welch ; Andrew Mejia ; Vladimir Kim ; Darian Trammell ; José Miguel Harris ; Keshia Pelayo FARM TRACTOR OPERATOR ; Kat Mccollum Discharge Orders/Prescriptions Prescriptions: No Action NK Referrals / Follow Up: Kwame Liz MD [Primary Care Provider] - Within 1 Week Renetta Welch MD [Med Staff - Active Staff] - Within 1 Week Disposition Disposition (needs filled in before D/C Order can be placed): Home, Self Care Charges/Coding Visit Charges Inpatient E&M: 63795 Disch Hosp >30min
[2023-01-07] MEDS: dexAMETHasone 4 MG Tablet 40 MG PO (10:27)
[2023-01-07] MEDS: Famotidine 20 MG Tablet 40 MG PO (10:27)
[2023-01-07 10:40] VITALS: BP 119/70; PULSE 86; RESP 16; TEMP 36.9; O2SAT 97
[2023-01-08 12:56] LABS: Pathologist Review Reviewed
[2023-01-09 15:08] LABS: PARVOVIRUS B19 IGG 6.7 index (0.0-0.8); PARVOVIRUS B19 IGM 0.1 index (0.0-0.8)
== END 2023-01-07 10:55 | disposition home or self-care (01) | DRG 661 ==
LOC: ED 15:58 → MS3 18:08
PROVIDERS: Internal Medicine Hematology & Oncology; Nurse Practitioner Family; Admitting Provider Internal Medicine; Emergency Provider Emergency Medicine; PCP Family Medicine; Visit Provider Family Medicine
DX: D69.3 Immune thrombocytopenic purpura (principal); Z94.81 Bone marrow transplant status; R11.0 Nausea; R51.9 Headache, unspecified; Z85.6 Personal history of leukemia
CPT/HCPCS: 36415; 70450; 80053; 83615; 85025; 85384; 85610; 85730; 86747; 86900; 86901; 86965; 99285; J7040; P9035; A4216

== ENCOUNTER 2023-01-11 19:14 | Inpatient (IN) | payer MEDICAID, SELFPAY ==
[2023-01-11 19:15] VITALS: BP 125/79; PULSE 80; RESP 18; TEMP 36.7; O2SAT 97; BMI 30.3
--- NOTE | 2023-01-11 19:30 | EKG12_ITS ---
Test Reason : DYSRHYTHMIA Blood Pressure : / mmHG Vent. Rate : 070 BPM Atrial Rate : 070 BPM P-R Int : 128 ms QRS Dur : 082 ms QT Int : 394 ms P-R-T Axes : 059 062 050 degrees QTc Int : 425 ms Normal sinus rhythm Normal ECG Confirmed by TAM MAST, JUSTINO ([id number]), photography editor KENDALL THOMAS ([id number]) on 01/15/2023 12:56:25 PM Referred By: MCKAYLA Confirmed By:JUSTINO TURCIOS MD
--- NOTE | 2023-01-11 19:33 | EX.ED.DYSGE1 ---
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 She was recently admitted for a ITP, given 3 units of platelets as well as oral Decadron. She sees Dr. Marely Welch, she states that she was discharged 4 days ago, she did work 2 days and states she just feels completely energy depleted. She states she is always hungry, she feels dizzy when she has fast movements. She continues to have rash to her legs and torso however she states it is improving.Patient's last blood work is on 01/08/2023, she had a leukocytosis white blood count of 13.3, patient's platelet count was 142, this is improved since 01/05/2023 when it was 3. Patient denies any specific pain. Patient that she has intermittent muscle aches. She denies any nausea or vomiting. Denies any fever or chills. She is currently not on any medications. [facility] <DAVID Iyer - Last Filed: 01/11/23 21:04> [facility] Medical History (Updated 01/11/23 @ 22:[address] Leno Vo MD) Leukemia Home Medications levonorgestrel 21 mcg/24 hours (8 yrs) 52 mg intrauterine device (Mirena) 1 device intrauterine ONCE 01/08/23 [History Last Taken Unknown] Allergy/AdvReac Type Severity Reaction Status Date / Time sulfamethoxazole Allergy Hives Verified 01/11/23 19:17 [From Bactrim] trimethoprim [From Bactrim] Allergy Hives Verified 01/11/23 19:17 amoxicillin AdvReac Rash Verified 01/11/23 19:17 Family History (Updated 01/08/23 @ 11:18 by Ashly Hummel) Grandmother Breast cancer paternal Cancer secondary dx, details unknown Mother Thyroid disorder Father Heart disease hx cardiac surgery Collapsed lung vehicle fell on him Surgical History History of removal of Port-a-Cath [place] teeth removed Social History (Updated 01/08/23 @ 11:21 by Ashly Hummel) household members: family number of children: 2 current occupational status: employed 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 Positive for generalized weakness Eyes: Negative for vision loss, vision change, double vision ENT: Negative for any sore throat, ear pain, congestion Cardiovascular: Negative for any chest pain, tightness, palpitations Respiratory: Negative for any cough, sputum production, hemoptysis, dyspnea, dyspnea on exertion, orthopnea Gastrointestinal: Negative for any abdominal pain, nausea, vomiting, diarrhea, constipation, blood in stool, blood in vomit : Negative for any urinary frequency, dysuria, retention, blood in urine Muscle skeletal: Negative for any muscle joint pain, stiffness, myalgias, arthralgias, neck pain, back pain Neurological: Negative for any headache, syncope, numbness or tingling, dizziness Skin: Negative for any rashes, lumps, itching, abrasions, lacerations Psychiatric: Negative for any depression, anxiety, stress, suicidal ideation, homicidal ideation Hematologic: Negative for any easy bruising, excessive bruising, easy bleeding Allergies: Negative for any eczema, hives. Positive for petechial rash EXAM <DAVID Iyer - Last Filed: 01/11/23 21:04> Physical Exam Narrative Exam Narrative: Vital signs reviewed. Vital signs are stable. Patient appears generally well HEET: Head normocephalic atraumatic, TMs clear bilaterally. Posterior pharynx is clear, moist mucous membranes. Nares clear bilaterally. Patient does have a small petechial spot on the top palate Neck: Supple with no lymphadenopathy or tenderness. No signs of meningismus, negative jolt sign. Cardiac: Regular rate and rhythm no murmurs gallops or rubs, equal peripheral pulses bilaterally. Respiratory: Lungs clear to auscultation bilaterally. No chest tenderness. Abdomen: Soft, nontender, nondistended. No abdominal bruit or pulsatile masses. No hepatosplenomegaly Extremities: No peripheral edema, no signs of gross trauma or deformity. Active full range of motion of all extremities. +2 pedal pulses. Equal. Patient does have some pain to bilateral calves she states that these are aching leg pains that she has been having on and off for multiple weeks. Neuro: Cranial nerves II through XII intact, no focal neurological deficits. Skin: Clean dry and intact with no rash, purpura, petechiae, vesicles or pustules. Backs/flank: No CVA tenderness, no midline spinal tenderness, no deformity. Psych: Normal mood and affect. No SI, HI or acute psychosis. Const Vital Signs: 01/11/23 19:15 01/11/23 19:32 Temperature 98.0 F Temperature Source Temporal Pulse Rate 80 Respiratory Rate 18 Respiratory Effort Normal Respiratory Pattern Normal Blood Pressure 125/79 H Blood Pressure Mean 94 Pulse Ox 97 Oxygen Delivery Method Room Air Positive well nourished and well developed General Appearance ED: well developed <Dr. Leno Vo MD - Last Filed: 01/11/23 22:09> Physical Exam Const Vital Signs: 01/11/23 19:15 01/11/23 19:32 Temperature 98.0 F Temperature Source Temporal Pulse Rate 80 Respiratory Rate 18 Respiratory Effort Normal Respiratory Pattern Normal Blood Pressure 125/79 H Blood Pressure Mean 94 Pulse Ox 97 Oxygen Delivery Method Room Air MDM <DAVID Iyer - Last Filed: 01/11/23 21:04> [facility] Lab Data Labs: Laboratory Results - last 24 hr 01/11/23 01/11/23 19:46 20:38 WBC 14.5 H RBC 5.01 Hgb 15.1 H Hct 45.0 MCV 89.8 MCH 30.1 MCHC 33.6 RDW Std Deviation 41.4 RDW Coeff of Castillo 12.9 Plt Count 9 L* MPV TNP Neut % (Auto) Not Reportable Absolute Neuts (auto) 7.4 Absolute Lymphs (auto) 5.37 H Total Counted 100 Neutrophils % (Manual) 51 Lymphocytes % (Manual) 37 Monocytes % (Manual) 10 Eosinophils % (Manual) 1 Metamyelocytes % 1 Diff Path Review May foll Platelet Estimate MKD DEC RBC Morphology NORM C+C PT 12.1 INR 0.9 Sodium 137 Potassium 4.2 Chloride 102 Carbon Dioxide 28.0 Anion Gap 7 BUN 19 H Creatinine 0.71 Estim Creat Clear Calc 124.74 Est GFR (MDRD) Af Amer 123 Est GFR (MDRD) Non-Af 102 BUN/Creatinine Ratio 26.7 H Glucose 83 Calcium 8.7 Urine Color Yellow Urine Clarity Clear Urine pH 7.0 Ur Specific [place] 1.010 Urine Protein Negative Urine Glucose (UA) Normal Urine Ketones Negative Urine Occult Blood 250 H Urine Nitrite Negative Urine Bilirubin Negative Urine Urobilinogen Normal Ur Leukocyte Esterase 100 H Urine RBC 5-10 SEEN Urine WBC 0-5 SEEN Ur Squamous Epith Cells 0-5 SEEN Urine Bacteria RARE Urine Mucus 0 SEEN Urine Test Negative EKG Normal sinus rhythm: Attestation: I personally reviewed and interpreted this EKG as follows: Interpretation: Sinus Rhythm Comments: Normal sinus rhythm, rate of 70 bpm, OH 128 ms, QRS duration 82 ms, no acute ST elevation, no acute infarct noted Treatment and Re-Evaluation :: Patient appears generally well, patient appears nontoxic, vital signs are stable. Patient presents the emergency department for ongoing weakness, patient does have history of ITP was admitted to the hospital at least 4 days ago. Patient did receive repeat laboratory values, patient's PT/INR within normal limits, chemistries were unremarkable, CBC is currently not resulted. Patient's urinalysis showed 100 leukocyte esterase, however rare bacteria, negative for any nitrates. 250 of blood. EKG was grossly unremarkable. <Dr. Leno Vo MD - Last Filed: 01/11/23 22:09> [facility] Narrative Medical decision making narrative: CBC shows white count 14 5. Hemoglobin 15.1. But again her platelets are down to 9. PT and INR are normal. Electrolytes show no marked abnormalities. She does have a slightly high BUN to creatinine ratio and is given IV fluids. is negative. Urinalysis is normal with just a few red cells. This patient was in [place] from the - of this month. While there she developed diarrhea and took medicine called strep to Mumtaz. This is a combination medicine that includes hydrochloric when sulfathiazole streptomycin and homatropine. Several of these are associated with potential thrombocytopenia although I do not know for sure they are the cause. Her prior parvovirus screening shows her chronically having been exposed but not an acute illness. I will discuss the case again with hematology. I was able to discuss the case with Dr. Welch. He agreed that this is again worsening. He states because of her great response to steroids he really thinks this is ITP. It is unclear if it is infectious or a reaction to her medication. She is already stopped the strep to Mumtaz tablets. We will send off blood cultures. He recommended a repeat dose at 40 mg of Decadron. Plan will be likely 40 mg of Decadron for about 5 days. They will then taper her off this time and follow-up. But with her symptoms and very low platelets he did recommend coming in the hospital at this time. Since no bleeding and she is close to 10,000 and no recommendation for transfusion at this time. I have the hospitalist on page. Lab Data Attestation: I reviewed the patient's lab results. Labs: Laboratory Results - last 24 hr 01/11/23 01/11/23 19:46 20:38 WBC 14.5 H RBC 5.01 Hgb 15.1 H Hct 45.0 MCV 89.8 MCH 30.1 MCHC 33.6 RDW Std Deviation 41.4 RDW Coeff of Castillo 12.9 Plt Count 9 L* MPV TNP Neut % (Auto) Not Reportable Absolute Neuts (auto) 7.4 Absolute Lymphs (auto) 5.37 H Total Counted 100 Neutrophils % (Manual) 51 Lymphocytes % (Manual) 37 Monocytes % (Manual) 10 Eosinophils % (Manual) 1 Metamyelocytes % 1 Diff Path Review May foll Platelet Estimate MKD DEC RBC Morphology NORM C+C PT 12.1 INR 0.9 Sodium 137 Potassium 4.2 Chloride 102 Carbon Dioxide 28.0 Anion Gap 7 BUN 19 H Creatinine 0.71 Estim Creat Clear Calc 124.74 Est GFR (MDRD) Af Amer 123 Est GFR (MDRD) Non-Af 102 BUN/Creatinine Ratio 26.7 H Glucose 83 Calcium 8.7 Urine Color Yellow Urine Clarity Clear Urine pH 7.0 Ur Specific [place] 1.010 Urine Protein Negative Urine Glucose (UA) Normal Urine Ketones Negative Urine Occult Blood 250 H Urine Nitrite Negative Urine Bilirubin Negative Urine Urobilinogen Normal Ur Leukocyte Esterase 100 H Urine RBC 5-10 SEEN Urine WBC 0-5 SEEN Ur Squamous Epith Cells 0-5 SEEN Urine Bacteria RARE Urine Mucus 0 SEEN Urine Test Negative Management Discussion w/another healthcare provider: Hospitalist and [employer] Discharge Plan Triage Chief Complaint: Weakness ED Midlevel Provider: Earnest Cheng ED Provider: Leno Vo Dx/Rx/DC Orders Clinical Impression: Acute idiopathic thrombocytopenic purpura Prescriptions: No Action Mirena 21 mcg/24 hours (8 yrs) 52 mg intrauterine device 1 device intrauterine ONCE Rx Instructions: as a single dose Primary Care Provider: Kwame Liz Referrals: Kwame Liz MD [Primary Care Provider] - Disposition Disposition: Acute Care Hospital [facility]
[2023-01-11] MEDS: 0.9% Normal Saline 1,000 ML 1000 ML IV (19:45)
[2023-01-11 20:31] LABS: Hemoglobin 15.1 g/dL (12.0-15.0); Mean Corp Hgb Conc 33.6 g/dL (32-36); Mean Corpuscular Hgb 30.1 pg (27.0-32.0); Mean Corpuscular Volume 89.8 fL (81-99); POSITIVE COUNT YES; POSITIVE MORPHOLOGY YES; RBC Distribution Width CV 12.9 % (11.6-14.6); RBC Distribution Width SD 41.4 fl (35.1-43.9); Red Blood Count 5.01 M/mm3 (4.2-5.4); White Blood Count 14.5 K/mm3 (4.4-11.0)
[2023-01-11 20:44] LABS: International Normalized Ratio 0.9; Prothrombin Time (Protime)PT. 12.1 SECONDS (11.7-14.9)
[2023-01-11 20:46] LABS: Anion Gap 7 (5-15); BUN 19 mg/dL (7-18); BUN/Creat Ratio 26.7 RATIO (10-20); Calcium,Total 8.7 mg/dL (8.5-10.1); Chloride 102 mmol/L (98-107); Creatinine, Serum 0.71 mg/dL (0.55-1.02); EST Glomerular Filtration Rate 102 mL/min (>60); Est Glom Filt Rate - Afr Amer 123 mL/min (>60); Estimated Creatinine Clearance 124.74 ml/min; Glucose 83 mg/dL (74-106); Potassium 4.2 mmol/L (3.5-5.1); Sodium Level 137 mmol/L (136-145)
[2023-01-11 20:47] LABS: Mucous, Urine 0 SEEN /hpf (<or=2+)
[2023-01-11 20:52] LABS: Color, Urine Yellow (Yellow); Glucose, Dipstick Normal (Normal); Ketone-Dipstick Negative (Negative); Leukocyte Esterase-Dipstick 100 /ul (Negative); Nitrite-Dipstick Negative (Negative); Occult Blood-Urine 250 /ul (Negative); Protein-Dipstick Negative (Negative); Urine Bilirubin Dipstick Negative (Negative); Urine Clarity Clear (Clear); Urine Urobilinogen Normal (Normal)
[2023-01-11 20:58] LABS: Bacteria RARE /hpf (None Seen); Red Blood Cells-Urine 5-10 SEEN /hpf (0-5); Squamous Epithelial Cells - UA 0-5 SEEN /hpf (5-10); White Blood Cells 0-5 SEEN /hpf (0-5)
[2023-01-11 20:59] LABS: Internal QC Validated? YES +Cl - CLEAR BKGD; Pregnancy, Urine Negative Negative
[2023-01-11 21:06] LABS: Eosinophil 1 % (0-5); Lymphocyte 37 % (19-41); Metamyelocyte 1 % (0-1); Monocyte 10 % (0-10); Neutrophil-Segmented 51 % (47-70); Total Cells Counted 100 (MANUAL DIFF)
[2023-01-11 21:07] LABS: Platelet Estimate MKD DEC (ADEQ); Red Cell Morphology NORM C+C NORMAL (NORM C&C)
[2023-01-11 21:08] LABS: Differential Indicated MANUAL DIFF; Platelet Count 9 K/mm3 (150-450)
[2023-01-11 21:10] LABS: Absolute Lymphocyte Count 5.37 X10^3/uL (0.83-4.51); Absolute Neutrophil Count 7.4 X10^3/uL (2.0-7.7)
[2023-01-11] MEDS: dexAMETHasone 20 MG/5 ML Vial 40 MG IV (22:37)
[2023-01-11 22:40] VITALS: BP 134/74; PULSE 74; RESP 18; TEMP 36.4; O2SAT 99
--- NOTE | 2023-01-11 22:41 | ED.RN ---
Unsuccessful blood draw x2 for blood culture second set.
[2023-01-11 22:58] VITALS: BMI 30.5
--- NOTE | 2023-01-11 23:02 | PCM.HP.STD ---
HPI - General General Date of Admission: 01/11/23 Date of Service: 01/11/23 Chief Complaint: Recurrent fatigue, malaise, myalgias. 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 initially presenting 01/04/23 with onset petechial rash to BL LE with recent return from [place] where patient developed diarrhea and was administered an OTC antidiarrheal mixture consisting of antimicrobials and antimotility agents that does have known side effect of thrombocytopenia treated for acute thrombocytopenia concerning for ITP with Hematology consultation with (3 units) Plts transfusion and decadron 40 mg x 4 high doses with clinical improvement who now re-presents to the [facility] ED on 01/11/23 with history of 2-day history of increasing fatigue, increased appetite, dizziness with any increased activity, persistent rash to her legs and torso but she does report that this is actually improving since prior as well as intermittent muscle aches prompting ED return. At recent discharge her parvoviral work-up had been pending but returned with chronically having been exposed but no acute illness. She denies any bleeding stigmata. She does states mild nausea but no emesis as well. Work-up in the ED included T98, heart rate 80, BP 125/79, respiratory rate 18, 97% on room air, CBC with WC 14.5, hemoglobin 15.1, platelet 9 with lymphocytosis, unremarkable coags, BMP not marked appearing aside mild BUN elevation 19, urinalysis with occult blood 250, leukocyte Estrace 100, urine RBCs 5-10 with no bacteria. In the ED patient administered decadron 40 mg IV x 1 and 1 L NS. ED discussed case with Hematology with recommendation continuation of decadron 40 mg IV daily and given no bleeding recommended avoidance of transfusion upon admission with serial CBC assessments. [facility] Medical History Leukemia Home Medications levonorgestrel 21 mcg/24 hours (8 yrs) 52 mg intrauterine device (Mirena) 1 device intrauterine ONCE 01/08/23 [History Last Taken Unknown] Allergy/AdvReac Type Severity Reaction Status Date / Time sulfamethoxazole Allergy Hives Verified 01/11/23 19:17 [From Bactrim] trimethoprim [From Bactrim] Allergy Hives Verified 01/11/23 19:17 amoxicillin AdvReac Rash Verified 01/11/23 19:17 Family History Grandmother Breast cancer paternal Cancer secondary dx, details unknown Mother Thyroid disorder Father Heart disease hx cardiac surgery Collapsed lung vehicle fell on him Surgical History History of removal of Port-a-Cath [place] teeth removed Social History household members: family number of children: 2 current occupational status: employed 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 HEENT: Eyes: No visual loss, blurred vision, double vision or yellow sclerae. Ears, Nose, Throat: No hearing loss, sneezing, congestion, runny nose or sore throat. SKIN: + Resolving lower extremity and thorax/abdominal petechial rash. CARDIOVASCULAR: No chest pain, chest pressure or chest discomfort, palpitations, edema, orthopnea, syncopal events. RESPIRATORY: No shortness of breath, cough or sputum, wheezing, hemoptysis. GASTROINTESTINAL: + Increased appetite, nausea. No vomiting or diarrhea, abdominal pain, melena, BRBPR. GENITOURINARY: No dysuria, frequency, urgency or retention. NEUROLOGICAL: No headache, dizziness, syncope, paralysis, ataxia, numbness or tingling in the extremities, focal weakness, change in bowel or bladder control, seizure. MUSCULOSKELETAL: + muscle, back pain, joint pain or stiffness. HEMATOLOGIC: No anemia, bleeding or bruising. LYMPHATICS: No enlarged nodes. No history of splenectomy. PSYCHIATRIC: No history of depression or anxiety. ENDOCRINOLOGIC: No reports of sweating, cold or heat intolerance. No polyuria or polydipsia. ALLERGIES: No history of asthma, hives, eczema or rhinitis. Vital Signs Vital Signs Vital Signs: 01/11/23 19:15 01/11/23 19:32 Temperature 98.0 F Temperature Source Temporal Pulse Rate 80 Respiratory Rate 18 Respiratory Effort Normal Respiratory Pattern Normal Blood Pressure 125/79 H Blood Pressure Mean 94 Pulse Ox 97 Oxygen Delivery Method Room Air Weight Weight: 150 lb 5.684 oz Body Mass Index (BMI) 30.3 Physical Exam Narrative Physical Examination: General: Awake, alert, oriented x 3 and cooperative, seated upright in the ED bed, fatigued, anxious. Skin: Normal color, normal turgor, no icterus, no cyanosis except for noted resolving lower extremity as well as thorax petechial rash. HEENT: AT/NC, EOMI, PERRLA, MMM, no carotid bruits or JVD noted. Lungs: CTA bilaterally, moderate effort, mild decrease BL bases, no rales, ronchi or wheezing. Heart: Regular rate and rhythm; no gallop, rub audible. Abdomen: Soft, obese, NTTP, ND, normal BS, no HSM. Extremities: No cyanosis, clubbing, or edema, see skin. Neurological: Patient awake, alert, oriented as noted, cognitive function intact; pupils equally reactive to light and accommodation, cranial nerves II-XII grossly normal, moving all 4 extremities, no focal deficits, strength preserved. Psychiatric: Affect appears fatigued, anxious, tearful. Results Lab / Micro Data 01/11/23 19:46 01/11/23 19:46 Labs: Laboratory Results - last 24 hr 01/11/23 19:46: WBC 14.5 H, RBC 5.01, Hgb 15.1 H, Hct 45.0, MCV 89.8, MCH 30.1, MCHC 33.6, RDW Std Deviation 41.4, RDW Coeff of Castillo 12.9, Plt Count 9 L*, MPV TNP, Neut % (Auto) Not Reportable, Absolute Neuts (auto) 7.4, Absolute Lymphs (auto) 5.37 H, Total Counted 100, Neutrophils % (Manual) 51, Lymphocytes % (Manual) 37, Monocytes % (Manual) 10, Eosinophils % (Manual) 1, Metamyelocytes % 1, Diff Path Review November, Platelet Estimate MKD DEC, RBC Morphology NORM C+C, PT 12.1, INR 0.9, Sodium 137, Potassium 4.2, Chloride 102, Carbon Dioxide 28.0, Anion Gap 7, BUN 19 H, Creatinine 0.71, Estim Creat Clear Calc 124.74, Est GFR (MDRD) Af Amer 123, Est GFR (MDRD) Non-Af 102, BUN/Creatinine Ratio 26.7 H, Glucose 83, Calcium 8.7 01/11/23 20:38: Urine Color Yellow, Urine Clarity Clear, Urine pH 7.0, Ur Specific [place] 1.010, Urine Protein Negative, Urine Glucose (UA) Normal, Urine Ketones Negative, Urine Occult Blood 250 H, Urine Nitrite Negative, Urine Bilirubin Negative, Urine Urobilinogen Normal, Ur Leukocyte Esterase 100 H, Urine RBC 5-10 SEEN, Urine WBC 0-5 SEEN, Ur Squamous Epith Cells 0-5 SEEN, Urine Bacteria RARE, Urine Mucus 0 SEEN, Urine Test Negative Assessment & Plan Assessment/Plan (1) Acute idiopathic thrombocytopenic purpura: PLAN: Plan The patient is a 32 y/o F w/ PMHx: 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 initially presenting 01/04/23 with onset petechial rash to BL LE with recent return from [place] where patient developed diarrhea and was administered an OTC antidiarrheal mixture consisting of antimicrobials and antimotility agents that does have known side effect of thrombocytopenia treated for acute thrombocytopenia concerning for ITP with Hematology consultation with (3 units) Plts transfusion and decadron 40 mg x 4 high doses with clinical improvement who now re-presents to the [facility] ED on 01/11/23 with history of 2-day history of increasing fatigue, increased appetite, dizziness with any increased activity, persistent rash to her legs and torso but she does report that this is actually improving since prior as well as intermittent muscle aches prompting ED return. #1. Acute ITP, unclear exact etiology, possible medication related, recurrent, potentially related with recent OTC medications: Will admit to [facility], will maintain on decadron 40 mg IV daily with plan once appropriate for discharge to slowly taper, continue to closely monitor CBC and if any onset of bleeding or worsening thrombocytopenia consider Plt transfusion but at this time recommendation per Dr. Welch to hold and monitor, pending Hematology consultation, PRN antiemetics, continue to monitor her petechial rash which has been improving of note. #2. Leukocytosis, suspect steroid recent administration induced: Admission CBC with WBC 14.5, recent similar rise following her steroid administration during recent admission, will continue to trend CBC as noted. #3. History childhood ALL: Diagnosis age 9 status post bone marrow transplant, considered in remission. #4. DVT prophylaxis: Low risk. Admission Evaluation Time spent evaluating chart, patient history, patient evaluation, care planning and discussion with specialists: 55 minutes. Charges/Coding Visit Charges Inpatient E&M: 31727 Init Hosp L2
[2023-01-11 23:10] VITALS: BP 120/76; PULSE 75; RESP 16; TEMP 36.6; O2SAT 97
[2023-01-11] MEDS: 0.9% Normal Saline 1,000 ML 100 ML IV (23:17)
[2023-01-12 04:45] VITALS: BP 102/55; PULSE 75; RESP 16; TEMP 36.6; O2SAT 96
[2023-01-12 06:47] LABS: Hemoglobin 14.2 g/dL (12.0-15.0); Mean Corp Hgb Conc 33.8 g/dL (32-36); Mean Corpuscular Hgb 30.5 pg (27.0-32.0); Mean Corpuscular Volume 90.3 fL (81-99); Mean Platelet Vol. 13.2 fl (6.2-12.0); POSITIVE COUNT YES; POSITIVE MORPHOLOGY YES; RBC Distribution Width CV 12.7 % (11.6-14.6); Red Blood Count 4.65 M/mm3 (4.2-5.4); White Blood Count 10.5 K/mm3 (4.4-11.0)
[2023-01-12 06:50] LABS: Differential Indicated MANUAL DIFF; Platelet Count 14 K/mm3 (150-450)
[2023-01-12 07:17] LABS: ALB/GLOB Ratio 0.8 RATIO (0.9-2.4); AST(SGOT) 15 U/L (15-37); Alanine Aminotransfer ALT/SGPT 45 U/L (13-56); Alkaline Phosphatase 43 U/L (45-117); Anion Gap 8 (5-15); BUN 15 mg/dL (7-18); BUN/Creat Ratio 17.9 RATIO (10-20); Calcium,Total 8.3 mg/dL (8.5-10.1); Chloride 107 mmol/L (98-107); Creatinine, Serum 0.84 mg/dL (0.55-1.02); EST Glomerular Filtration Rate 85 mL/min (>60); Est Glom Filt Rate - Afr Amer 103 mL/min (>60); Estimated Creatinine Clearance 106.17 ml/min; Glucose 141 mg/dL (74-106); Potassium 4.4 mmol/L (3.5-5.1); Sodium Level 136 mmol/L (136-145)
[2023-01-12 08:00] VITALS: BP 113/73; PULSE 64; RESP 16; TEMP 36.7; O2SAT 98
[2023-01-12 08:15] LABS: Eosinophil 1 % (0-5); Lymphocyte 8 % (19-41); Metamyelocyte 1 % (0-1); Myelocyte 2 % (0-0); Neutrophil-Segmented 88 % (47-70); Platelet Estimate MKD DEC (ADEQ); Red Cell Morphology NORM C+C NORMAL (NORM C&C); Total Cells Counted 100 (MANUAL DIFF)
[2023-01-12 08:16] LABS: Absolute Lymphocyte Count 0.84 X10^3/uL (0.83-4.51); Absolute Neutrophil Count 9.2 X10^3/uL (2.0-7.7); Lymphocyte # 0.84 X10^3/ul (0.83-4.51)
[2023-01-12 08:38] VITALS: O2SAT 95
[2023-01-12] MEDS: 0.9% Normal Saline 1,000 ML 100 ML IV ×2 (09:01→18:35)
[2023-01-12] MEDS: Famotidine 20 MG Tablet PO ×2 (09:55→22:30)
[2023-01-12] MEDS: dexAMETHasone 20 MG/5 ML Vial 40 MG IV (09:55)
[2023-01-12] MEDS: 0.9% Saline Lock 10 ML Syringe IV (09:56)
[2023-01-12 10:21] LABS: Pathologist Review Reviewed
[2023-01-12 10:22] LABS: Pathologist Review Reviewed
--- NOTE | 2023-01-12 11:07 | PN.HOSP_ITS ---
Subjective Subjective Doing well, no issues overnight. Objective Data Objective Data Vital Signs: Vital Signs Temp Pulse Resp BP Pulse Ox O2 Del Method 98.1 F 64 16 113/73 95 Room Air 01/12/23 08:00 01/12/23 08:00 01/12/23 08:00 01/12/23 08:00 01/12/23 08:38 01/12/23 08:38 Oxygen Delivery Method Room Air Weight: 151 lb 6.4 oz Body Mass Index (BMI) 30.5 Intake & Output: Intake and Output for Last 24 Hours 01/11/23 01/12/23 01/13/23 03:59 03:59 03:59 Intake Total 1000 / 1000 973.33 / 973.33 Balance 1000 / 1000 973.33 / 973.33 Lab / Micro Data 01/12/23 06:15 01/12/23 06:15 Labs: Laboratory Results - last 24 hr 01/11/23 19:46: WBC 14.5 H, RBC 5.01, Hgb 15.1 H, Hct 45.0, MCV 89.8, MCH 30.1, MCHC 33.6, RDW Std Deviation 41.4, RDW Coeff of Castillo 12.9, Plt Count 9 L*, MPV TNP, Neut % (Auto) Not Reportable, Absolute Neuts (auto) 7.4, Absolute Lymphs (auto) 5.37 H, Total Counted 100, Neutrophils % (Manual) 51, Lymphocytes % (Manual) 37, Monocytes % (Manual) 10, Eosinophils % (Manual) 1, Metamyelocytes % 1, Diff Path Review Reviewed, Platelet Estimate MKD DEC, RBC Morphology NORM C+C, PT 12.1, INR 0.9, Sodium 137, Potassium 4.2, Chloride 102, Carbon Dioxide 28.0, Anion Gap 7, BUN 19 H, Creatinine 0.71, Estim Creat Clear Calc 124.74, Est GFR (MDRD) Af Amer 123, Est GFR (MDRD) Non-Af 102, BUN/Creatinine Ratio 26.7 H, Glucose 83, Calcium 8.7 01/11/23 20:38: Urine Color Yellow, Urine Clarity Clear, Urine pH 7.0, Ur Specific [place] 1.010, Urine Protein Negative, Urine Glucose (UA) Normal, Urine Ketones Negative, Urine Occult Blood 250 H, Urine Nitrite Negative, Urine Bi lirubin Negative, Urine Urobilinogen Normal, Ur Leukocyte Esterase 100 H, Urine RBC 5-10 SEEN, Urine WBC 0-5 SEEN, Ur Squamous Epith Cells 0-5 SEEN, Urine Bacteria RARE, Urine Mucus 0 SEEN, Urine Test Negative 01/12/23 06:15: WBC 10.5, RBC 4.65, Hgb 14.2, Hct 42.0, MCV 90.3, MCH 30.5, MCHC 33.8, RDW Std Deviation 41.0, RDW Coeff of Castillo 12.7, Plt Count 14 L*, MPV 13.2 H , Neut % (Auto) Not Reportable, Absolute Neuts (auto) 9.2 H, Absolute Lymphs (auto) 0.84, Total Counted 100, Neutrophils % (Manual) 88 H, Lymphocytes % (Manual) 8 L, Eosinophils % (Manual) 1, Metamyelocytes % 1, Myelocytes % 2 H, Diff Path Review Reviewed, Platelet Estimate MKD DEC, RBC Morphology NORM C+C, Sodium 136, Potassium 4.4, Chloride 107, Carbon Dioxide 21.0, Anion Gap 8, BUN 15, Creatinine 0.84, Estim Creat Clear Calc 106.17, Est GFR (MDRD) Af Amer 103, Est GFR (MDRD) Non-Af 85, BUN/Creatinine Ratio 17.9, Glucose 141 H, Calcium 8.3 L, Total Bilirubin 0.60, AST 15, ALT 45, Alkaline Phosphatase 43 L, Total Protein 7.0, Albumin 3.0 L, Globulin 4.0, Albumin/Globulin Ratio 0.8 L, Blood Type A NEGATIVE, Antibody Screen NEGATIVE Physical Exam Narrative General: Alert, Oriented x3, Cooperative, No apparent distress HEENT: Atraumatic, PERRLA, EOMI, Normocephalic Oral: Moist Mucosa Neck: Supple, No JVD Lungs: Clear to auscultation, Normal air movement, No rhonchi, No wheeze, No rales Cardiovascular: Regular rate, Regular Rhythm, Normal S1, Normal S2, No murmurs Abdomen: Soft, Non Tender, Non-Distended, No Hepato-splenomegaly Extremities: No edema, Capillary Refill Less than 3 Seconds Skin: Petechial rash on her legs improved from her last admission Musculoskeletal: No Tenderness to Palpation of Joints or Extremities Neurological: Cranial nerves II-XII grossly intact, Motor Exam 5/5 strength throughout, Sensory exam intact to light touch and pain Psych/Mental Status: Normal Affect, Appropriate Assessment & Plan Assessment/Plan (1) Acute idiopathic thrombocytopenic purpura: PLAN: Plan 1. Acute idiopathic thrombocytopenia ? Earlier this week her platelets were normal ? We will continue with Decadron, if for platelets continue to improve can plan for discharge on a Medrol Dosepak, this was discussed with hematology and they can see her as an outpatient ? Platelet count today is 14,000 no transfusions at this time ? Will continue with Pepcid 2. Leukocytosis ? Unclear as to the etiology, it is normalized today without antibiotics ? Blood culture and urine cultures are pending DVT: Ambulation Charges/Coding Visit Charges Inpatient E&M: 84960 Subs Hosp L2
--- NOTE | 2023-01-12 11:10 | CASEMGMT ---
SILVERIO WEATHERS Readmission Note Previous Admission:? 01/04/23-01/07/23? Diagnosis:? profound thrombocytopenia DC Disposition: Home Current Admission? Current Diagnosis: acute recurrent ITP Pt admitted on 01/04/23 with a platelet count of 2000, pt received 3 units and on day of dc platelets were 63,000 with 2 days of no transfusions. Pt received steroids. Pt dc'd home with no needs. Pt did follow up with and had labs drawn. Pt then came into the ER with 2 days of increasing fatigue, increased appetite, dizziness, rash and muscle aches. Pt platelets found to be 9,000. Pt to be continued on decadron. No infusions planned at this time. Pt denies any homegoing needs. SILVERIO WEATHERS to follow. DC Plan: Home
--- NOTE | 2023-01-12 11:50 | ONC.CONSULT ---
Assessment & Plan Assessment/Plan (1) Acute idiopathic thrombocytopenic purpura: Status: Acute Code(s): D69.3 - Immune thrombocytopenic purpura Plan: To continue Decadron. If PLT improve, she can be discharged on Medrol pack. Follow in the Clinic. Will not follow further on this admission. HPI Consult Data Date of Service:: 01/12/23 PCP / Referring Provider: Dr. Kwame Liz MD Attending: Dr. Edwin Bermudez MD Chief Complaint Chief Complaint: Asked to see Pt for ITP History of Present Illness History of Present Illness: 32-year-old woman with history of childhood ALL in remission, was diagnosed with acute ITP on 01/04/2023. She was given platelet transfusions and Decadron high-dose with normalization of platelets. She comes back to the ER 01/11/2023 with bruising and Platelet count of 9. IV Decadron was started and admitted. This morning platelets 14,000. She feels well has a bruise on the right flank, a smaller one on the left thigh. Advanced Directives Power of [employer]: No Living Will: No [facility] Medical History Leukemia Home Medications levonorgestrel 21 mcg/24 hours (8 yrs) 52 mg intrauterine device (Mirena) 1 device intrauterine ONCE 01/08/23 [History Last Taken Unknown] Allergy/AdvReac Type Severity Reaction Status Date / Time sulfamethoxazole Allergy Hives Verified 01/11/23 19:17 [From Bactrim] trimethoprim [From Bactrim] Allergy Hives Verified 01/11/23 19:17 amoxicillin AdvReac Rash Verified 01/11/23 19:17 Family History Grandmother Breast cancer paternal Cancer secondary dx, details unknown Mother Thyroid disorder Father Heart disease hx cardiac surgery Collapsed lung vehicle fell on him Surgical History History of removal of [place] teeth removed Social History household members: family number of children: 2 current occupational status: employed 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 current occupational exposures/hazards: No history of recent travel: Yes details: [place] - returned 01/03/23 out of country: Yes Smoking Status: Never smoker alcohol intake: never substance use type: does not use additional social history: avoids pork ROS Constitutional Constitutional: Denies chills, fatigue or fever(s) ENT HEENT: Denies dysphagia or hoarseness Cardiovascular Cardiovascular: Denies chest pain or diaphoresis Respiratory/Chest Respiratory/Chest: Denies dyspnea or hemoptysis Gastrointestinal Gastrointestinal: Denies abdominal pain Genitourinary Genitourinary: Denies change in urinary stream Musculoskeletal Musculoskeletal: Denies back pain Integumentary Integumentary: Denies erythema or jaundice Neurologic Neurologic: Denies abnormal speech Psychiatric Psychiatric: Denies anxiety or depression Endocrine Endocrinology: Denies cold intolerance or flushing Hematologic/Lymphatic Hematologic/Lymphatic: Reports easy bleeding and easy bruising; Denies lymphadenopathy Physical Exam Const alert, oriented x3 and no apparent distress HEENT normocephalic Eyes PERRL, EOMs intact bilaterally, conjunctivae normal and no scleral icterus Neck no lymphadenopathy Lymph Lymphatic: no lymphadenopathy noted Resp normal respiratory effort and clear to auscultation bilaterally Cardio regular rate, regular rhythm, S1 normal heart sound and S2 normal heart sound GI normal to inspection, nondistended, normoactive bowel sounds Extremity normal to inspection and no clubbing, cyanosis or edema Skin Skin Narrative: + bruise R flank, L thigh Neuro CN's II-XII intact bilaterally, moves all extremities and no focal motor deficits Vital Signs Temperature 98.1 F 01/12/23 08:00 Temperature Source Oral 01/12/23 08:00 Pulse Rate 64 01/12/23 08:00 Respiratory Rate 16 01/12/23 08:00 Respiratory Effort Normal, Non-Labored 01/11/23 22:58 Respiratory Depth Normal 01/11/23 22:58 Respiratory Pattern Normal 01/11/23 22:58 Blood Pressure 113/73 01/12/23 08:00 Blood Pressure Mean 86 01/12/23 08:00 Blood Pressure Source Monitor 01/12/23 08:00 Blood Pressure Position Semi-Fowlers 01/12/23 08:00 Blood Pressure Location Right Arm 01/12/23 08:00 Pulse Ox 95 01/12/23 08:38 Oxygen Delivery Method Room Air 01/12/23 08:38 Laboratory Results - last 24 hr 01/11/23 19:46: WBC 14.5 H, RBC 5.01, Hgb 15.1 H, Hct 45.0, MCV 89.8, MCH 30.1, MCHC 33.6, RDW Std Deviation 41.4, RDW Coeff of Castillo 12.9, Plt Count 9 L*, MPV TNP, Neut % (Auto) Not Reportable, Absolute Neuts (auto) 7.4, Absolute Lymphs (auto) 5.37 H, Total Counted 100, Neutrophils % (Manual) 51, Lymphocytes % (Manual) 37, Monocytes % (Manual) 10, Eosinophils % (Manual) 1, Metamyelocytes % 1, Diff Path Review Reviewed, Platelet Estimate MKD DEC, RBC Morphology NORM C+C, PT 12.1, INR 0.9, Sodium 137, Potassium 4.2, Chloride 102, Carbon Dioxide 28.0, Anion Gap 7, BUN 19 H, Creatinine 0.71, Estim Creat Clear Calc 124.74, Est GFR (MDRD) Af Amer 123, Est GFR (MDRD) Non-Af 102, BUN/Creatinine Ratio 26.7 H, Glucose 83, Calcium 8.7 01/11/23 20:38: Urine Color Yellow, Urine Clarity Clear, Urine pH 7.0, Ur Specific [place] 1.010, Urine Protein Negative, Urine Glucose (UA) Normal, Urine Ketones Negative, Urine Occult Blood 250 H, Urine Nitrite Negative, Urine Bilirubin Negative, Urine Urobilinogen Normal, Ur Leukocyte Esterase 100 H, Urine RBC 5-10 SEEN, Urine WBC 0-5 SEEN, Ur Squamous Epith Cells 0-5 SEEN, Urine Bacteria RARE, Urine Mucus 0 SEEN, Urine Test Negative 01/12/23 06:15: WBC 10.5, RBC 4.65, Hgb 14.2, Hct 42.0, MCV 90.3, MCH 30.5, MCHC 33.8, RDW Std Deviation 41.0, RDW Coeff of Castillo 12.7, Plt Count 14 L*, MPV 13.2 H, Neut % (Auto) Not Reportable, Absolute Neuts (auto) 9.2 H, Absolute Lymphs (auto) 0.84, Total Counted 100, Neutrophils % (Manual) 88 H, Lymphocytes % (Manual) 8 L, Eosinophils % (Manual) 1, Metamyelocytes % 1, Myelocytes % 2 H, Diff Path Review Reviewed, Platelet Estimate MKD DEC, RBC Morphology NORM C+C, Sodium 136, Potassium 4.4, Chloride 107, Carbon Dioxide 21.0, Anion Gap 8, BUN 15, Creatinine 0.84, Estim Creat Clear Calc 106.17, Est GFR (MDRD) Af Amer 103, Est GFR (MDRD) Non-Af 85, BUN/Creatinine Ratio 17.9, Glucose 141 H, Calcium 8.3 L, Total Bilirubin 0.60, AST 15, ALT 45, Alkaline Phosphatase 43 L, Total Protein 7.0, Albumin 3.0 L, Globulin 4.0, Albumin/Globulin Ratio 0.8 L, Blood Type A NEGATIVE, Antibody Screen NEGATIVE Charges/Coding Visit Charges Office Visits / Consults: 30331 IP Consult L3
[2023-01-12 14:00] VITALS: BP 106/50; PULSE 79; RESP 16; TEMP 37; O2SAT 98
[2023-01-12 21:23] VITALS: BP 129/69; PULSE 75; RESP 16; TEMP 36.8; O2SAT 98
[2023-01-13 03:18] VITALS: BP 119/72; PULSE 76; RESP 16; TEMP 36.9; O2SAT 98
[2023-01-13] MEDS: 0.9% Normal Saline 1,000 ML 100 ML IV (04:32)
[2023-01-13 06:39] LABS: Absolute Lymphocyte Count 0.87 X10^3/uL (0.83-4.51); Absolute Neutrophil Count 15.1 X10^3/uL (2.0-7.7); Basophil# 0.06 X10^3/uL; Basophil% 0.3 % (0-1); Hematocrit 40.9 % (37-47); Hemoglobin 13.7 g/dL (12.0-15.0); Lymphocyte # 0.87 X10^3/ul (0.83-4.51); Mean Corp Hgb Conc 33.5 g/dL (32-36); Mean Corpuscular Hgb 30.6 pg (27.0-32.0); Mean Corpuscular Volume 91.5 fL (81-99); Mean Platelet Vol. 11.4 fl (6.2-12.0); Monocyte# 0.86 X10^3/uL; Monocyte% 4.9 % (0-10); NRBC Flagged by Analyzer 0 % (0-5); Neutrophil # 15.07 X10^3/uL (2.7-7.7); Neutrophil % 86.4 % (47-70); POSITIVE COUNT YES; Platelet Count 64 K/mm3 (150-450); RBC Distribution Width CV 12.5 % (11.6-14.6); RBC Distribution Width SD 40.8 fl (35.1-43.9); Red Blood Count 4.47 M/mm3 (4.2-5.4); White Blood Count 17.5 K/mm3 (4.4-11.0)
[2023-01-13 08:42] VITALS: O2SAT 97
[2023-01-13 09:31] VITALS: BP 122/67; PULSE 94; RESP 16; TEMP 36.6; O2SAT 98
--- NOTE | 2023-01-13 10:18 | DCINST_ITS ---
Discharge Instructions Diet Discharge Diet: No restrictions Activity Discharge Activity: Return to Normal Activity Follow Up Care Test Results: Test results from this visit will be discussed in further detail at your follow- up appointment, if applicable. Discharge Plan Admission Admit Date/Time: 01/11/23 22:15 Primary Reason for Your Visit: Low platelets Attending Provider: Venice Mcmahan Primary Care Provider: Kwame Liz Consulting Providers: Jacques Braswell; Nathan Catalan; Renetta Welch; Andrew Mejia; Vladimir Kim; Darian Trammell; José Miguel aHrris; Erin Pelayo NP; Judith Velarde; Edwin Bermudez Instructions Patient Instructions: ITP Dc Additional Instructions / Restrictions: DISCHARGE INSTRUCTIONS PLEASE READ *Please take this with you to your next doctors appointment* -Please follow with oncology upon discharge, please keep your appointment on Sunday, if any questions or problems with scheduling please call their office -You will be discharged on a steroid taper, Medrol Dosepak. Please take this as prescribed -Would recommend lab work (CBC) to check your white blood cell count and platelets in 2 to 3 days through your primary care physician's office or your oncology physician's office. Please call their office upon discharge to obtain order for lab work. -Please call your primary care provider's office upon discharge to schedule a hospital follow up within 1 week. -For any concerning signs or symptoms please call 911 or proceed to the nearest emergency department Discharge Orders/Prescriptions Prescriptions: New methylprednisolone [Medrol (Ildefonso)] 4 mg tablets,dose pack See Rx Instructions .ROUTE .COMPLEX Qty: 21 0RF Rx Instructions: Take 6 tabs tomorrow and decrease by 1 tab daily until done Continued Mirena 21 mcg/24 hours (8 yrs) 52 mg intrauterine device 1 device intrauterine ONCE Rx Instructions: as a single dose Referrals / Follow Up: Kwame Liz MD [Primary Care Provider] - Within 1 Week Renetta Welch MD [Med Staff - Active Staff] - See Referral Note ( -Please follow-up with oncology upon discharge. Please call their office to schedule hospital follow-up appointment upon discharge.) Disposition Disposition (needs filled in before D/C Order can be placed): Home, Self Care
--- NOTE | 2023-01-13 10:23 | DS.PCM_ITS ---
Providers Date of Admission: 01/11/23 Date of Discharge: 01/13/23 Primary Care Physician: Dr. 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 She had recently presented 01/04 with onset of petechial rash on lower extremities after she recently returned from [place] and then developed diarrhea and was found to have acute thrombocytopenia concerning for ITP. Hematology was consulted at that time and patient received 3 units and Decadron 40 mg x 4 with clinical improvement. She followed up with hematology in the office and was found to have worsened thrombocytopenia again. Patient improved again with steroids and was seen by hematology who recommended patient could be discharged on Medrol Dosepak if she continued to improve. On day of discharge patient denies any specific acute complaints. Platelets increased to 64, discharged home on Medrol Dosepak. Did have increase in white blood cell count on 01/13 but had been resumed on high-dose steroids and suspect this was reactive as patient had no specific or localizing complaints that would suggest infection. Discharge instructions as follows: -Please follow with oncology upon discharge, please keep your appointment on Sunday, if any questions or problems with scheduling please call their office -You will be discharged on a steroid taper, Medrol Dosepak. Please take this as prescribed -Would recommend lab work (CBC) to check your white blood cell count and platelets in 2 to 3 days through your primary care physician's office or your oncology physician's office. Please call their office upon discharge to obtain order for lab work. -Please call your primary care provider's office upon discharge to schedule a hospital follow up within 1 week. -For any concerning signs or symptoms please call 911 or proceed to the nearest emergency department Physical Exam Narrative General: Alert, oriented, no apparent distress HEENT: Atraumatic, normocephalic Eyes: Anicteric, normal conjunctiva, extraocular movements grossly intact Neck: Supple Respiratory: Clear to auscultation bilaterally, normal respiratory effort Cardiovascular: Regular rate and rhythm GI: Soft, nontender, nondistended Extremities: No edema Musculoskeletal: Moving all extremities Neuro: No overt focal neurological deficits Skin: Had a couple scattered bruises Psych: Cooperative Weight / BMI Weight Weight: 68.674 kg Body Mass Index (BMI) 30.5 ABG / Lab / Microbiology Data 01/13/23 06:03 01/12/23 06:15 Laboratory: Laboratory Results - last 24 hr 01/13/23 06:03: WBC 17.5 H, RBC 4.47, Hgb 13.7, Hct 40.9, MCV 91.5, MCH 30.6, MCHC 33.5, RDW Std Deviation 40.8, RDW Coeff of Castillo 12.5, Plt Count 64 L, MPV 11.4, Immature Gran % (Auto) 3.400 H, Neut % (Auto) 86.4 H, Lymph % (Auto) 5.0 L , [place] % (Auto) 4.9, Eos % (Auto) 0.0, Baso % (Auto) 0.3, Absolute Neuts (auto) 15.1 H, Absolute Lymphs (auto) 0.87, Nucleated RBC % 0 Microbiology: Microbiology 01/11/23 20:38 Urine, Clean Catch Urine Culture - Final Mixed Gram Positive Organisms D/C Instructions Discharge Diet: No restrictions Meaningful Use Info Meaningful Use Diagnoses (Choose all that apply): None applicable Discharge Plan Admission Admit Date/Time: 01/11/23 22:15 Primary Reason for Your Visit: Low platelets Attending Provider: Venice Mcmahan Primary Care Provider: Kwame Liz Consulting Providers: Jacques Braswell; Nathan Catalan; Renetta Welch; Andrew Mejia; Vladimir Kim; Darian rTammell; José Miguel Harris; Erin Pelayo NP; Judith Velarde; Edwin Bermudez Instructions Patient Instructions: ITP Dc Additional Instructions / Restrictions: DISCHARGE INSTRUCTIONS PLEASE READ *Please take this with you to your next doctors appointment* -Please follow with oncology upon discharge, please keep your appointment on Sunday, if any questions or problems with scheduling please call their office -You will be discharged on a steroid taper, Medrol Dosepak. Please take this as prescribed -Would recommend lab work (CBC) to check your white blood cell count and platelets in 2 to 3 days through your primary care physician's office or your oncology physician's office. Please call their office upon discharge to obtain order for lab work. -Please call your primary care provider's office upon discharge to schedule a hospital follow up within 1 week. -For any concerning signs or symptoms please call 911 or proceed to the nearest emergency department Discharge Orders/Prescriptions Prescriptions: New methylprednisolone [Medrol (Ildefonso)] 4 mg tablets,dose pack See Rx Instructions .ROUTE .COMPLEX Qty: 21 0RF Rx Instructions: Take 6 tabs tomorrow and decrease by 1 tab daily until done Continued Mirena 21 mcg/24 hours (8 yrs) 52 mg intrauterine device 1 device intrauterine ONCE Rx Instructions: as a single dose Referrals / Follow Up: Kwame Liz MD [Primary Care Provider] - Within 1 Week Renetta Welch MD [Med Staff - Active Staff] - See Referral Note ( -Please follow-up with oncology upon discharge. Please call their office to schedule hospital follow-up appointment upon discharge.) Disposition Disposition (needs filled in before D/C Order can be placed): Home, Self Care Charges/Coding Visit Charges Inpatient E&M: 02913 Disch Hosp >30min
[2023-01-13] MEDS: dexAMETHasone 20 MG/5 ML Vial 40 MG IV (10:33)
[2023-01-13] MEDS: Famotidine 20 MG Tablet PO (10:34)
[2023-01-13 12:55] VITALS: BP 128/74; PULSE 74; RESP 18; TEMP 36.7; O2SAT 98
== END 2023-01-13 12:50 | disposition home or self-care (01) | DRG 661 ==
LOC: ED 22:09 → MS3 22:27
PROVIDERS: Family Medicine; Nurse Practitioner; Admitting Provider Family Medicine; Emergency Provider Emergency Medicine; PCP Family Medicine; Visit Provider Internal Medicine
DX: D69.3 Immune thrombocytopenic purpura (principal); Z94.81 Bone marrow transplant status; C94.81 Other specified leukemias, in remission
CPT/HCPCS: 36415; 80048; 80053; 81001; 81025; 85025; 85610; 86850; 86900; 86901; 87040; 87086; 87088; 93005; 99282; J7030; A4216

== ENCOUNTER 2025-03-10 19:44 | Emergency (ER) | payer OTHER, SELFPAY ==
[2025-03-10 19:44] VITALS: BP 126/70; PULSE 80; RESP 18; TEMP 36.8; O2SAT 98; BMI 32.1
--- NOTE | 2025-03-10 20:13 | EX.ED.DYSGE1 ---
HPI History of Present Illness Chief Complaint: Wound Narrative Narrative: Patient is a 34-year-old female with past medical history of thrombocytopenia, ITP who presents to the emergency department the chief complaint of being scratched by a groundhog on her right hand. She states that there was a groundhog in the middle of the road and she tried to save it and noted that she was scratched. States that she was not bit. States that she is unsure when her last tetanus shot was. [facility] Medical History (Updated 03/10/25 @ 21:[address] Qamar Simpson, DO) Depression Anxiety GERD (gastroesophageal reflux disease) Migraines Asthma Leukemia Thrombocytopenia Acute idiopathic thrombocytopenic purpura Home Medications ?Medication ?Instructions ?Recorded ?Last Taken ?Type levonorgestrel (Mirena) 1 device intrauterine ONCE 01/08/23 Unknown History Allergy/AdvReac Type Severity Reaction Status Date / Time sulfamethoxazole (From Allergy Hives Verified 03/10/25 19:46 Bactrim) trimethoprim (From Bactrim) Allergy Hives Verified 03/10/25 19:46 amoxicillin AdvReac Rash Verified 03/10/25 19:46 Family History Grandmother Breast cancer paternal Cancer secondary dx, details unknown Mother Thyroid disorder Father Heart disease hx cardiac surgery Collapsed lung vehicle fell on him Surgical History History of removal of Port-a-Cath [place] teeth removed Social History household members: family number of children: 2 current occupational status: employed 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 current occupational exposures/hazards: No history of recent travel: Yes details: [place] - returned 01/03/23 out of country: Yes Smoking Status: Never smoker alcohol intake: never substance use type: does not use additional social history: avoids pork ROS ROS ED ROS Narrative Neurological: Denies any numbness, wheeze, tingling Musculoskeletal: Complains of scratch to the right hand as noted above Skin: Denies any active bleeding EXAM Physical Exam Narrative Exam Narrative: General: Patient sitting in chair at bedside resting comfortably did not appear to be acute distress Head: Atraumatic, normocephalic Eyes: PERRL bilateral, EOMI bilateral, no conjunctival injection noted Cardiovascular: Regular rate Extremities: +5/5 strength noted in the bilateral lower extremities, radial pulses +2/4 and 5 extremities, no pedal edema exam Neurological: Patient follow commands and that she was at [facility] years 2024 sensation grossly intact Skin: Warm, dry, patient has a superficial abrasion noted at the base of her right thumb no active bleeding noted no puncture wound Const Vital Signs: 03/10/25 19:44 Temperature 98.2 F Temperature Source Oral Pulse Rate 80 Respiratory Rate 18 Blood Pressure 126/70 H Blood Pressure Mean 88 Pulse Ox 98 Oxygen Delivery Method Room Air MDM MDM MDM Narrative Medical decision making narrative: Patient is a 34-year-old female who presents to the emergency department after being scratched by a groundhog. Patient was originally concerned about rabies however once again she was not bit by the groundhog she was scratched. Patient tetanus shot is not up-to-date therefore this will be updated. Patient was advised to keep an eye on this and watch out for signs of infection such as surrounding redness purulent drainage or any other concerns if this occurs she should return to the emergency department otherwise she can follow-up with her doctor in outpatient setting. All question concerns answered she was discharged home in stable condition. Discharge Plan Triage Chief Complaint: Wound ED Provider: Qamar Simpson Dx/Rx/DC Orders Clinical Impression: Animal scratch, Superficial abrasion, History of anxiety, History of thrombocytopenia Prescriptions: No Action Mirena 21 mcg/24 hours (8 yrs) 52 mg intrauterine device 1 device intrauterine ONCE Rx Instructions: as a single dose Primary Care Provider: Kwame Liz Referrals: Kwame Liz MD [Primary Care Provider] - Activity Restrictions/Additional Instructions: Follow-up your doctor in outpatient setting. Your tetanus shot was updated. Watch out for signs of infection such as surrounding redness purulent drainage if this is to occur call your doctor or return to the emergency department as you will likely need antibiotics. Keep the area dry and clean. Print Language: Romanian Disposition Disposition: Home, Self Care
[2025-03-10 21:44] VITALS: BP 118/71; PULSE 75; RESP 16; TEMP 36.6; O2SAT 98
== END 2025-03-10 22:05 | disposition home or self-care (01) ==
PROVIDERS: Emergency Provider Emergency Medicine; PCP Family Medicine; Visit Provider Emergency Medicine
DX: S60.311A Abrasion of right thumb, initial encounter (principal); F41.9 Anxiety disorder, unspecified; Z23 Encounter for immunization; X58.XXXA Exposure to other specified factors, initial encounter; Y92.410 Unspecified street and highway as the place of occurrence of the external cause; Z86.2 Personal history of diseases of the blood and blood-forming organs and certain disorders involving the immune mechanism
CPT/HCPCS: 90471; 90715; 99282